=== PATIENT | female | born 1935 | race Caucasian/White ===

== ENCOUNTER 2016-09-02 10:09 | Inpatient (IN) | payer OTHER ==
[~2016-09-02] VITALS: Ht 160 cm; Wt 60.3 kg
[~2016-09-02 10:09] MED LIST: CHOL100010 PO; DONE10TA12 PO; KFL500 PO; MTH25 PO; NMN10 PO; PRLSR20 PO
[2016-09-02] MEDS ORDERED: SODIUM CHLORIDE 0.9% 500ML 500 ML IV STA (10:59)
[2016-09-02] MEDS ORDERED: SULFAMETHOXAZOLE/TRIMETHOPRIM DS 800/160MG TAB PO STA (10:59)
[2016-09-02] MEDS ORDERED: CEFTRIAXONE SOD INJ 1 GM ADDVIAL IV STA (10:59)
[2016-09-02] MEDS ORDERED: OMEP40CA PO (11:10)
[2016-09-02] MEDS ORDERED: DONE5TAB9 PO (11:10)
--- NOTE | 2016-09-02 11:24 | DIAGNOSTIC IMAGING REPORT ---
CHEST ONE VIEW PORTABLE CLINICAL HISTORY: Generalized weakness COMPARISON STUDY: 07/09/2016 FINDINGS: The heart is the upper limits of normal in size. There is mild elevation of the interstitium. This may indicate mild pulmonary vascular congestion. There is no lobar consolidation. There is no significant pleural fluid.[ IMPRESSION: Mild elevation of the interstitium, likely representing mild pulmonary vascular congestion although an interstitial inflammatory process could appear similar. Clinical and radiographic follow-up is recommended. Electronically signed by: Greg Veliz M.D. 09/02/2016 11:22 AM
[2016-09-02 11:40] LABS: BASO % 0.5 %; BASO ABS # 0.03 K/uL (0-0.2); COMPLETE YES; EOS % 0.9 %; HEMATOCRIT 38.9 % (37-47); IG% 0.2 %; LYMPH % 14.7 %; LYMPH ABS # 0.81 K/uL (1.2-3.4); MEAN CORPUSCULAR HEMOGLOBIN 30.1 pg (25-34); MEAN CORPUSCULAR HGB CONC 33.4 g/dl (32-36); MEAN PLATELET VOLUME 9.7 fL (7.4-10.4); MONO % 6.9 %; NEUT % 76.8 %; PLATELET COUNT 188 K/uL (130-400); RED BLOOD COUNT 4.32 M/uL (4.2-5.4)
[2016-09-02 11:55] LABS: ALT/SGPT 16 U/L (12-78); BLOOD UREA NITROGEN 19 mg/dl (7-18); BUN/CREATININE RATIO 21.3 (10-20); CALCIUM 9.3 mg/dl (8.5-10.1); CARBON DIOXIDE 29 mmol/L (21-32); CHLORIDE 99 mmol/L (98-107); CREATININE 0.91 mg/dl (0.60-1.20); GLUCOSE 206 mg/dl (70-99); POTASSIUM 4.1 mmol/L (3.5-5.1); SODIUM 137 mmol/L (136-145)
[2016-09-02 12:05] LABS: ALKALINE PHOSPHATASE 69 U/L (45-117); AST/SGOT 17 U/L (15-37); THYROID STIMULATING HORMONE 0.449 uIu/ml (0.300-4.500)
[2016-09-02] MEDS ORDERED: ACETAMINOPHEN 325 MG TAB PO PRN (12:15)
[2016-09-02] MEDS ORDERED: ONDANSETRON INJ 2 MG/ML 2 ML VIAL IV PRN (12:15)
[2016-09-02] MEDS ORDERED: MAGNESIUM HYDROXIDE SUSP 30 ML UDC PO PRN (12:15)
[2016-09-02] MEDS ORDERED: ALUMINUM/MAGNESIUM/SIMETH (MAALOX MAX) 30 ML UDC PO PRN (12:15)
[2016-09-02 12:22] LABS: URINE APPEARANCE CLOUDY (CLEAR); URINE BILIRUBIN NEG (NEG); URINE COLOR YELLOW; URINE NITRITE NEG (NEG); URINE SPECIFIC GRAVITY 1.025 (1.000-1.030); UROBILINOGEN NEG (NEG); ZZURINE CULT IF INDIC CATH YES
[2016-09-02 12:23] LABS: MANUAL MICROSCOPIC REQUIRED? NO; REVIEW REQ? NO
--- NOTE | 2016-09-02 12:25 | EMERGENCY ROOM VISIT NOTE ---
History Report prepared by Jordy: Michelle Hood Under the Supervision of: Dr. Luc Alexander M.D. First contact with patient: 10:53 Chief Complaint: CONFUSION Stated Complaint: POSS. 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 The patient came to the ED via ambulance from the [facility]. The patient is also experiencing lethargy and hypertension. The patient's daughter states that the patient has Alzheimer's disease and experiences these symptoms whenever she has a UTI. Her daughter adds that the patient typically experiences urinary incontinence. The patient's daughter states that typically the patient receives IV Rocephin for UTIs and gets a prescription for Bactrim. Source of History: family (daughter) Onset: EMPLOYEE DEVELOPMENT DIRECTOR Position: head Quality: other (altered mental status) Timing: worsening Note: lethargy, hypertension Review of Systems See HPI for pertinent positives & negatives. A total of 10 systems reviewed and were otherwise negative. Past Medical & Surgical Medical Problems: (1) Acute encephalopathy (2) Constipation (3) Dementia, Unspecified, Without Behavioral Disturbance (4) Diabetes (5) Diverticulosis Colon (W/O Ment Of Hemorrhage) (6) Esophageal Reflux (7) Hyperlipidemia Nec/Nos (8) Hypertension Nos (9) Irritable Bowel Syndrome (10) Metabolic encephalopathy (11) Osteoarthros Nos-Unspec (12) Osteoporosis Nos Surgical Problems: (1) History of cataract extraction (2) History of hysterectomy (3) History of shoulder surgery (4) Incisional Hernia Family History Cancer Social History Smoking Status: Never Smoker Alcohol Use: none Marital Status: Housing Status: lives with family Occupation Status: retired Current/Historical Medications Scheduled Aspirin (Aspirin Chewable), 81 MG PO QAM Carbidopa/Levodopa (Sinemet 25MG/100MG), 1 TAB PO TIDM Cholecalciferol (Vitamin D), 1,000 INTER.UNIT PO QAM Donepezil HCl (Aricept), 1 TAB PO HS Folic Acid (Folic Acid), 1 MG PO DAILY Lisinopril (Zestril), 10 MG PO DAILY Memantine (Namenda), 10 MG PO BID Metformin HCl (Metformin HCl), 500 MG PO BID Methotrexate (Methotrexate), 15 MG PO WK Multivitamin (Multivitamin), 1 TAB PO QAM Omeprazole (Prilosec), 40 MG PO DAILY Polyethylene Glycol 3350 (Miralax), 17 GM PO DAILY Probiotic Product (Probiotic), 1 CAP PO DAILY Ranitidine HCl (Ranitidine HCl), 150 MG PO HS Simethicone (Cvs Gas Relief), 80 MG PO TIDM Simvastatin (Zocor), 20 MG PO QPM Allergies Coded Allergies: Penicillins (Verified Allergy, Intermediate, ARM GETS RED AND LUMP FORMS AT INJECTION SITE, 09/02/16) PT STATES THAT SHE HAD RECEIVED SHOTS IN THE PAST AND HER ARM GETS RED AND LUMP FORMS Latex (Verified Allergy, Mild, RASH, 09/02/16) Adhesives (Verified Allergy, Unknown, ., 09/02/16) Morphine (Verified Allergy, Unknown, 09/02/16) Levofloxacin (Verified Adverse Reaction, Intermediate, GI SYMPTOMS, ) LOST 30 LBS. DUE TO GI SYMPTOMS Physical Exam Vital Signs Date Time Temp Pulse Resp B/P Pulse Ox O2 Delivery O2 Flow Rate FiO2 09/02/16 12:07 82 18 137/80 97 Room Air 09/02/16 10:22 36.9 91 18 134/69 97 Room Air 09/02/16 10:18 101 Physical Exam GENERAL: Patient is a healthy-appearing well-nourished older female HEAD: Normocephalic atraumatic EYES: Ocular movements intact pupils equal and react to light OROPHARYNX mucous membranes are moist no exudates present no erythema or edema present NECK: Supple no nuchal rigidity CHEST: Good equal expansion LUNGS: Clear and equal to auscultation CARDIAC: Normal S1 and S2 ABDOMEN: Soft nontender no guarding BACK: No CVA tenderness EXTREMITIES: No pain upon palpation normal muscle strength in all groups no clubbing cyanosis or edema NEURO: Patient does not follow commands. Cranial Nerves 2-12 grossly intact Medical Decision & Procedures ER Provider Diagnostic Interpretation: X-ray results as stated below per interpretation by me and the radiologist: CHEST ONE VIEW PORTABLE CLINICAL HISTORY: Generalized weakness COMPARISON STUDY: 07/09/2016 FINDINGS: The heart is the upper limits of normal in size. There is mild elevation of the interstitium. This may indicate mild pulmonary vascular congestion. There is no lobar consolidation. There is no significant pleural fluid.[ IMPRESSION: Mild elevation of the interstitium, likely representing mild pulmonary vascular congestion although an interstitial inflammatory process could appear similar. Clinical and radiographic follow-up is recommended. Electronically signed by: Greg Veliz M.D. 09/02/2016 11:22 AM Laboratory Results Test 09/02/16 11:15 Estimated Average Glucose 146 mg/dl Hemoglobin A1c 6.7 % (4.5-5.6) Total Bilirubin 0.5 mg/dl (0.2-1) Direct Bilirubin 0.2 mg/dl (0-0.2) Aspartate Amino Transf (AST/SGOT) 17 U/L (15-37) Alanine Aminotransferase (ALT/SGPT) 16 U/L (12-78) Alkaline Phosphatase 69 U/L (45-117) Total Creatine Kinase 48 U/L (26-192) Creatine Kinase MB < 0.5 ng/ml (0.5-3.6) Creatine Kinase MB Ratio (0-3.0) Troponin I < 0.015 ng/ml (0-0.045) Total Protein 7.0 gm/dl (6.4-8.2) Albumin 3.1 gm/dl (3.4-5.0) Thyroid Stimulating Hormone (TSH) 0.449 uIu/ml (0.300-4.500) Labs reviewed by ED physician. Medications Administered Medications (Trade) Dose Ordered Sig/Wendy Route Start Time Stop Time Status Last Admin Dose Admin Sodium Chloride (Nss 500ml) 500 ml @ 999 mls/hr Q31M STAT IV 09/02/16 10:59 09/02/16 11:29 DC 09/02/16 11:38 999 MLS/HR Ceftriaxone Sodium (Rocephin Inj) 1 gm NOW STAT IV 09/02/16 10:59 09/02/16 11:01 DC 09/02/16 10:59 1 GM Trimethoprim/ Sulfamethoxazole (Septra Ds 800/ 160MG Tab) 1 tab NOW STAT PO 09/02/16 10:59 09/02/16 11:01 DC 09/02/16 11:38 1 TAB ECG Indication: altered mental status Rate (beats per minute): 85 Rhythm: normal sinus Findings: PVC, no acute ischemic change ED Course 1056: Past medical records reviewed. The patient was evaluated in room A3. A complete history and physical examination was performed. 1059: Ordered Trimethoprim/Sulfamethoxazole 1 tab PO, Rocephin 1 gm IV, Sodium Chloride 500 ml @ 999 mls/hr IV 1201: I discussed the patient's case with Dr. Pernell NIELSON, he has agreed to evaluate the patient for further management and care. 1203: Upon reexamination the patient is resting comfortably. I discussed results and treatment plan with the patient and her family. They verbalize agreement and understanding. I spoke with Dr. Gimenez from the [facility]. The patient will be evaluated for further management. Medical Decision Differential diagnosis: Etiologies such as metabolic, infection, hypoglycemia, electrolyte abnormalities , cardiac sources, intracerebral event, toxicologic, neurologic, as well as others were entertained. This is an 81-year-old female who presents emergency department complaining of mental status. Patient has been having urinary symptoms. An IV was established , the patient given normal saline bolus. She does appear to have urinary tract infection and therefore started on Rocephin as well as Bactrim. I did discuss the case with the hospitalist service who agreed to admit the patient. Patient was in agreement with the treatment plan. Consults Time Called: 1159 Consulting Physician: Dr. Pernell NIELSON Returned Call: 1201 I discussed the patient's case with Dr. Pernell NIELSON, he has agreed to evaluate the patient for further management and care. Impression Primary Impression: Altered mental status Additional Impression: UTI (lower urinary tract infection) Scribe Attestation The scribe's documentation has been prepared under my direction and personally reviewed by me in its entirety. I confirm that the note above accurately reflects all work, treatment, procedures, and medical decision making performed by me. Departure Information Dispostion Being Evaluated By Hospitalist Referrals Jagdish Lam (PCP) Patient Instructions A Signature Page, My [facility]
[2016-09-02 12:30] VITALS: O2SAT 97; Ht 160 cm; Wt 60.3 kg
[2016-09-02 14:09] LABS: ESTIMATED AVERAGE GLUCOSE 146 mg/dl; HA1C FLAG Normal (Normal)
[2016-09-02 15:30] VITALS: BP 132/67; PULSE 88; TEMP 36.8; O2SAT 92
--- NOTE | 2016-09-02 16:25 | HISTORY & PHYSICAL EXAMINATION ---
DATE OF ADMISSION: 09/02/2016 CHIEF COMPLAINT: Confusion. HISTORY OF PRESENT ILLNESS: This is an 81-year-old female who resides at [facility], was brought to the Emergency Room because of change of mental status that started this morning. The patient has experienced lethargy and the patient 's daughter that presents at bedside mentioned that the patient has Alzheimer dementia and her symptoms of confusion get worse when she gets a UTI. The patient was admitted for multiple UTIs before. Daughter also mentioned that the patient typically experiences urinary incontinence associated with UTI. The patient's daughter mentions that she usually receives IV Rocephin and Bactrim and her symptoms improved within few days. REVIEW OF SYSTEMS: Limited due to the patient's confusion and history was mainly obtained from the Emergency Room records and family. PAST MEDICAL HISTORY: Significant for UTI, constipation, dementia, type 2 diabetes, diverticulosis, GERD, hyperlipidemia, hypertension, irritable bowel syndrome, metabolic encephalopathy, osteoporosis, osteoarthritis, cataract extraction, hysterectomy, shoulder surgery, and incisional hernia. FAMILY HISTORY: Significant for cancer. SOCIAL HISTORY: Does not smoke, does not drink, lives at [facility]. CURRENT MEDICATIONS: Aspirin 81 mg p.o. daily, carbidopa/levodopa 25/100 mg 1 tablet p.o. t.i.d., cholecalciferol 1000 international units p.o. daily, donepezil 1 tablet p.o. at bedtime, folic acid 1 mg p.o. daily, lisinopril 10 mg p.o. daily, memantine 10 mg p.o. b.i.d., metformin 500 mg p.o. b.i.d., methotrexate 50 mg p.o. weekly on , multivitamin 1 tablet p.o. daily, omeprazole 40 mg p.o. daily, polyethylene glycol 17 grams p.o. daily, probiotic 1 capsule p.o. daily, ranitidine 150 mg p.o. at bedtime, simethicone 80 mg p.o. t.i.d., and simvastatin 20 mg p.o. daily. ALLERGIES: PENICILLIN, LATEX, ADHESIVES, MORPHINE AND LEVOFLOXACIN. PHYSICAL EXAMINATION: VITAL SIGNS: Temperature 36.9, pulse 82, respirations 18, blood pressure 137/80, and pulse ox 97% on room air. GENERAL: Not in acute distress, pleasantly confused. HEENT: Normocephalic and atraumatic. PERRLA, EOMI. Mouth moist. No lesions. NECK: No JVD. Trachea midline. Thyroid is not enlarged. LUNGS: Clear to auscultation bilateral. No wheezes and no rhonchi. HEART: S1 and S2, RRR. ABDOMEN: Soft, nontender, and nondistended. Bowel sounds present bilateral. No organomegaly. BACK: No CVA tenderness. EXTREMITIES: No clubbing, cyanosis or edema. NEUROLOGICAL: The patient is pleasantly confused and disoriented x2. Does not follow commands. Cranial nerves II-XII are intact; however, unable to follow commands to finish complete neurological examination. DIAGNOSTIC INTERPRETATION: Chest x-ray, mild elevation of the interstitium, likely representing mild pulmonary vascular congestion, although an interstitial inflammatory process could appear similar. LABORATORY DATA: White count of 5.5, hemoglobin of 13.0, and platelets 180. BMP normal except for glucose of 206, gap of 9.0, and calcium 9.3. LFTs normal. CK-MB and troponin normal. Albumin of 3.1. TSH of 0.49. EKG, 85 beats per minute normal sinus, PVC, no acute ischemic changes. ASSESSMENT AND PLAN: This is an 81-year-old female who comes with altered mental status secondary to urinary tract infection. 1. Acute toxic metabolic encephalopathy secondary to urinary tract infection. Admit the patient to general medical floor. Start IV ceftriaxone. Check urinalysis with cultures until sensitivities are back. Continue with normal saline at 80 mL per hour. 2. History of Alzheimer's dementia, currently symptoms of confusion are worse due to urinary tract infection. We will continue Namenda and Aricept. 3. Type 2 diabetes mellitus. The patient was taking metformin, which I am going to put on hold and start the patient on sliding scale. We will check hemoglobin A1c while the patient is here. 4. History of constipation, gastroesophageal reflux disease, hyperlipidemia, and hypertension. Continue aspirin, folic acid, lisinopril, omeprazole, ranitidine, Probiotic, Simethicone, and simvastatin. 5. History of parkinsonism, but no Parkinson disease. Continue carbidopa/levodopa 1 tablet p.o. t.i.d. 6. DVT and GI prophylaxis. The patient is Do Not Resuscitate. Time spent on doing this admission, 40 minutes. [facility]
[2016-09-02] MEDS: INSULIN ASPART 100 UNITS/ML 3 ML PEN SC SCH ×2 (17:15→21:00)
[2016-09-02] MEDS: SODIUM CHLORIDE 0.9% 1000ML 1,000 ML IV SCH ×2 (17:55→23:22)
[2016-09-02] MEDS: SIMETHICONE 80 MG CHEW PO SCH (17:58)
[2016-09-02] MEDS: CARBIDOPA/LEVODOPA 25/100MG TAB PO SCH (17:58)
[2016-09-02] MEDS: MEMANTINE 10 MG TAB PO SCH (21:13)
[2016-09-02] MEDS: SIMVASTATIN 20 MG TAB PO SCH (21:13)
[2016-09-02] MEDS: DONEPEZIL HCL 5 MG TAB PO SCH (21:13)
[2016-09-02] MEDS: RANITIDINE HCL 150 MG TAB PO SCH (21:13)
[2016-09-02] MEDS: HEPARIN SOD 5000 UNIT/0.5 ML CARP SQ SCH (21:16)
[2016-09-02 22:55] VITALS: BP 120/68; PULSE 87; TEMP 36.3; O2SAT 91
[2016-09-03] VITALS (9 sets, daily range): BP systolic 118–161; BP diastolic 49–98; PULSE 71–99; TEMP 36.3–36.7; O2SAT 96–98
[2016-09-03 06:39] LABS: URINE APPEARANCE CLEAR (CLEAR); URINE BILIRUBIN NEG (NEG); URINE COLOR YELLOW; URINE EPITHELIAL CELL AUTO 20-30 /lpf (0-5); URINE NITRITE NEG (NEG); URINE SPECIFIC GRAVITY 1.013 (1.000-1.030); UROBILINOGEN NEG (NEG)
[2016-09-03 06:42] LABS: MANUAL MICROSCOPIC REQUIRED? NO; REVIEW REQ? NO
[2016-09-03 06:54] LABS: BASO % 0.6 %; BASO ABS # 0.03 K/uL (0-0.2); COMPLETE YES; EOS % 4.5 %; HEMATOCRIT 35.4 % (37-47); LYMPH % 22.7 %; LYMPH ABS # 1.05 K/uL (1.2-3.4); MEAN CELL VOLUME 89.8 fL (80-100); MEAN CORPUSCULAR HEMOGLOBIN 29.9 pg (25-34); MEAN CORPUSCULAR HGB CONC 33.3 g/dl (32-36); MEAN PLATELET VOLUME 9.8 fL (7.4-10.4); MONO % 3.9 %; NEUT % 68.3 %; PLATELET COUNT 182 K/uL (130-400); RED BLOOD COUNT 3.94 M/uL (4.2-5.4); WHITE BLOOD COUNT 4.62 K/uL (4.8-10.8)
[2016-09-03 07:24] LABS: BUN/CREATININE RATIO 14.4 (10-20); CALCIUM 8.7 mg/dl (8.5-10.1); CREATININE 0.9 mg/dl (0.60-1.20); POTASSIUM 3.7 mmol/L (3.5-5.1)
[2016-09-03] MEDS: INSULIN ASPART 100 UNITS/ML 3 ML PEN SC SCH ×4 (08:00→20:51)
[2016-09-03] MEDS: CHOLECALCIFEROL 1000 INTER.UNIT TAB PO SCH (09:04)
[2016-09-03] MEDS: ASPIRIN 81 MG ECTAB PO SCH (09:04)
[2016-09-03] MEDS: MEMANTINE 10 MG TAB PO SCH ×2 (09:04→20:51)
[2016-09-03] MEDS: CARBIDOPA/LEVODOPA 25/100MG TAB PO SCH ×3 (09:05→17:39)
[2016-09-03] MEDS: LISINOPRIL 10 MG TAB PO SCH (09:05)
[2016-09-03] MEDS: POLYETHYLENE (MIRALAX) 17 GM PACK PO SCH (09:05)
[2016-09-03] MEDS: SIMETHICONE 80 MG CHEW PO SCH ×3 (09:05→17:39)
[2016-09-03] MEDS: MULTIVITAMIN TAB PO SCH (09:05)
[2016-09-03] MEDS: PANTOprazole SOD 40 MG TAB PO SCH (09:05)
[2016-09-03] MEDS: LACTOBACILLUS ACIDOPHILUS (FLORANEX) TAB PO SCH (09:05)
[2016-09-03] MEDS: HEPARIN SOD 5000 UNIT/0.5 ML CARP SQ SCH ×2 (09:15→20:57)
[2016-09-03] MEDS: CEFTRIAXONE SOD INJ 1 GM in DEXTROSE 5% ADD-VANTAGE 50ML 50 ML IV SCH (09:26)
--- NOTE | 2016-09-03 12:35 | Progress Note ---
Subjective Subjective Date of Service: Sep 03, 2016. Pt evaluation today including: conversation w/ patient, physical exam, chart review, review of studies, review of inpatient medication list Notes: confusion is improving, however ROS is limited due to mental status Problem List Medical Problems: (1) Altered mental status Status: Acute (2) Dementia, Unspecified, Without Behavioral Disturbance Status: Chronic (3) Diabetes Status: Chronic (4) Esophageal Reflux Status: Chronic (5) Hyperlipidemia Nec/Nos Status: Chronic (6) Hypertension Nos Status: Chronic (7) Irritable Bowel Syndrome Status: Chronic (8) Osteoarthros Nos-Unspec Status: Chronic (9) Osteoporosis Nos Status: Chronic (10) UTI (lower urinary tract infection) Status: Acute (11) UTI (urinary tract infection) Status: Acute Review of Systems Respiratory: No cough Abdomen: No pain Musculoskeletal: No joint pain Female : No dysuria Physical Exam Vital Signs Vital Signs Past 24 Hours: Date Time Temp Pulse Resp B/P Pulse Ox O2 Delivery O2 Flow Rate FiO2 09/03/16 08:21 85 19 152/88 98 Room Air 09/03/16 08:20 82 19 160/49 98 Room Air 09/03/16 07:45 Room Air 09/03/16 06:56 36.7 74 18 125/70 97 Room Air 09/03/16 04:42 82 135/71 93 153/98 09/02/16 23:10 Room Air 09/02/16 22:55 36.3 87 16 120/68 91 Room Air 09/02/16 15:30 36.8 88 16 132/67 92 Room Air 09/02/16 15:30 Room Air 09/02/16 14:05 36.5 80 16 120/61 98 Room Air Physical Exam: General Appearance: WD/WN, no apparent distress Eyes: bilateral eyes normal inspection ENT: hearing grossly normal, pharynx normal Neck: supple, no JVD Respiratory/Chest: lungs clear, no respiratory distress Cardiovascular: regular rate, rhythm, no gallop Abdomen: non tender, soft Extremities: non-tender, no pedal edema Neurologic/Psychiatric: alert Skin: warm/dry Medications Medications: Current Inpatient Medications Medications (Trade) Dose Ordered Sig/Wendy Route Start Time Stop Time Status Last Admin Dose Admin Aspirin (Ecotrin Tab) 81 mg QAM PO 09/03/16 09:00 10/03/16 08:59 09/03/16 09:04 81 MG Carbidopa/Levodopa (Sinemet 25/ 100MG Tab) 1 tab TIDM PO 09/02/16 17:45 10/02/16 17:59 09/03/16 09:05 1 TAB Cholecalciferol (Vitamin D Tab) 1,000 inter.unit QAM PO 09/03/16 09:00 10/03/16 08:59 09/03/16 09:04 1,000 INTER.UNIT Donepezil HCl (Aricept Tab) 5 mg HS PO 09/02/16 21:00 10/02/16 20:59 09/02/16 21:13 5 MG Folic Acid (Folvite Tab) 1 mg DAILY PO 09/03/16 09:00 10/03/16 08:59 09/03/16 09:04 1 MG Lisinopril (Zestril Tab) 10 mg DAILY PO 09/03/16 09:00 10/03/16 08:59 09/03/16 09:05 10 MG Memantine (Namenda Tab) 10 mg BID PO 09/02/16 21:00 10/02/16 20:59 09/03/16 09:04 10 MG Methotrexate (Methotrexate Tab) 15 mg Th@0900 PO 09/07/16 09:00 10/07/16 08:59 Multivitamins (Multivitamin Tab) 1 tab QAM PO 09/03/16 09:00 10/03/16 08:59 09/03/16 09:05 1 TAB Ranitidine HCl (zANTac TAB) 150 mg HS PO 09/02/16 21:00 10/02/16 20:59 09/02/16 21:13 150 MG Simethicone (Mylicon Chew Tab) 80 mg TIDM PO 09/02/16 17:45 10/02/16 17:59 09/03/16 09:05 80 MG Simvastatin (Zocor Tab) 20 mg QPM PO 09/02/16 21:00 10/02/16 20:59 09/02/16 21:13 20 MG Pantoprazole Sodium (Protonix Tab) 40 mg DAILY PO 09/03/16 09:00 10/03/16 08:59 09/03/16 09:05 40 MG Polyethylene (Miralax Powder Packet) 17 gm DAILY PO 09/03/16 09:00 10/03/16 08:59 09/03/16 09:05 17 GM Lactobacillus Acidophilus 1 tab 1 tab DAILY PO 09/03/16 09:00 10/03/16 08:59 09/03/16 09:05 1 TAB Ceftriaxone Sodium/Dextrose (Rocephin Inj/ Dextrose Add-[place] 50ML) 50 ml @ 100 mls/hr Q24H IV 09/03/16 10:00 09/11/16 10:29 09/03/16 09:26 100 MLS/HR Acetaminophen (Tylenol Tab) 650 mg Q4H PRN PO 09/02/16 12:15 10/02/16 12:14 Al Hydrox/Mg Hydrox/Simethicone (Maalox Max Susp) 15 ml Q4H PRN PO 09/02/16 12:15 10/02/16 12:14 Magnesium Hydroxide (Milk Of Magnesia Susp) 30 ml Q6H PRN PO 09/02/16 12:15 10/02/16 12:14 Ondansetron HCl (Zofran Inj) 4 mg Q6H PRN IV 09/02/16 12:15 10/02/16 12:14 Heparin Sodium (Porcine) (Heparin Sq 5000 Unit/0.5ml) 5,000 unit Q12 SQ 09/02/16 21:00 10/02/16 20:59 09/03/16 09:15 5,000 UNIT Insulin Aspart SLIDING SCALE G... ACHS SC 09/02/16 17:15 10/02/16 17:14 Sodium Chloride (Nss 1000ml) 1,000 ml @ 80 mls/hr [id number] IV 09/02/16 12:30 10/02/16 12:29 09/02/16 23:22 80 MLS/HR Laboratory Data Labs: Last 24 Hours Test 09/02/16 16:38 09/02/16 20:48 09/03/16 06:00 09/03/16 06:01 Bedside Glucose 156 mg/dl 137 mg/dl Urine Color YELLOW Urine Appearance CLEAR Urine pH 7.0 Urine Specific [place] 1.013 Urine Protein NEG Urine Glucose (UA) NEG Urine Ketones TRACE Urine Occult Blood NEG Urine Nitrite NEG Urine Bilirubin NEG Urine Urobilinogen NEG Urine Leukocyte Esterase TRACE Urine WBC (Auto) 1-5 /hpf Urine RBC (Auto) 0-4 /hpf Urine Hyaline Casts (Auto) 1-5 /lpf Urine Epithelial Cells (Auto) 20-30 /lpf Urine Bacteria (Auto) NEG White Blood Count 4.62 K/uL Red Blood Count 3.94 M/uL Hemoglobin 11.8 g/dL Hematocrit 35.4 % Mean Corpuscular Volume 89.8 fL Mean Corpuscular Hemoglobin 29.9 pg Mean Corpuscular Hemoglobin Concent 33.3 g/dl Platelet Count 182 K/uL Mean Platelet Volume 9.8 fL Neutrophils (%) (Auto) 68.3 % Lymphocytes (%) (Auto) 22.7 % Monocytes (%) (Auto) 3.9 % Eosinophils (%) (Auto) 4.5 % Basophils (%) (Auto) 0.6 % Neutrophils # (Auto) 3.15 K/uL Lymphocytes # (Auto) 1.05 K/uL Monocytes # (Auto) 0.18 K/uL Eosinophils # (Auto) 0.21 K/uL Basophils # (Auto) 0.03 K/uL RDW Standard Deviation 47.2 fL RDW Coefficient of Variation 14.3 % Immature Granulocyte % (Auto) 0.0 % Immature Granulocyte # (Auto) 0.00 K/uL Sodium Level 138 mmol/L Potassium Level 3.7 mmol/L Chloride Level 104 mmol/L Carbon Dioxide Level 27 mmol/L Anion Gap 7.0 mmol/L Blood Urea Nitrogen 13 mg/dl Creatinine 0.90 mg/dl Est Creatinine Clear Calc Drug Dose 39.9 ml/min Estimated GFR () 69.0 Estimated GFR (Non- 59.5 BUN/Creatinine Ratio 14.4 Random Glucose 132 mg/dl Calcium Level 8.7 mg/dl Test 09/03/16 06:55 09/03/16 11:11 Bedside Glucose 128 mg/dl 202 mg/dl Assessment and Plan This is an 81-year-old female who comes with altered mental status secondary to urinary tract infection. 1. Acute toxic metabolic encephalopathy secondary to urinary tract infection. cont general medical floor. cont IV ceftriaxone. until sensitivities on urine cultures are back. Continue with normal saline at 80 mL per hour. 2. History of Alzheimer's dementia, currently symptoms of confusion are worse due to urinary tract infection. continue Namenda and Aricept. 3. Type 2 diabetes mellitus. metformin, on hold and start the patient on sliding scale. hemoglobin A1c 6.7 4. History of constipation, gastroesophageal reflux disease, hyperlipidemia, and hypertension. Continue aspirin, folic acid, lisinopril, omeprazole, ranitidine, Probiotic, Simethicone, and simvastatin. 5. History of parkinsonism, but no Parkinson disease. Continue carbidopa/ levodopa 1 tablet p.o. t.i.d. 6. DVT and GI prophylaxis. The patient is Do Not Resuscitate.
[2016-09-03] MEDS: SODIUM CHLORIDE 0.9% 1000ML 1,000 ML IV SCH ×2 (12:49→23:22)
[2016-09-03] MEDS: SIMVASTATIN 20 MG TAB PO SCH (20:51)
[2016-09-03] MEDS: RANITIDINE HCL 150 MG TAB PO SCH (20:51)
[2016-09-03] MEDS: DONEPEZIL HCL 5 MG TAB PO SCH (20:51)
[2016-09-04] MEDS: INSULIN ASPART 100 UNITS/ML 3 ML PEN SC SCH ×2 (08:00→12:00)
[2016-09-04 08:08] VITALS: BP 146/72; PULSE 70; TEMP 36.4; O2SAT 97
[2016-09-04 08:08] LABS: BASO % 1.3 %; BASO ABS # 0.04 K/uL (0-0.2); COMPLETE YES; EOS % 11.9 %; HEMATOCRIT 34.2 % (37-47); IG% 0.3 %; LYMPH % 30.9 %; LYMPH ABS # 0.96 K/uL (1.2-3.4); MEAN CELL VOLUME 88.6 fL (80-100); MEAN CORPUSCULAR HEMOGLOBIN 29.8 pg (25-34); MEAN CORPUSCULAR HGB CONC 33.6 g/dl (32-36); MEAN PLATELET VOLUME 9.6 fL (7.4-10.4); MONO % 3.9 %; NEUT % 51.7 %; PLATELET COUNT 174 K/uL (130-400); RED BLOOD COUNT 3.86 M/uL (4.2-5.4); WHITE BLOOD COUNT 3.11 K/uL (4.8-10.8)
[2016-09-04 08:11] VITALS: BP_SYST 158; BP_SYST 165; BP_DIAS 85; BP_DIAS 92; PULSE 76; PULSE 79
[2016-09-04 08:38] LABS: BUN/CREATININE RATIO 16.3 (10-20); CALCIUM 8.9 mg/dl (8.5-10.1); CREATININE 0.72 mg/dl (0.60-1.20); POTASSIUM 3.9 mmol/L (3.5-5.1)
[2016-09-04] MEDS: CARBIDOPA/LEVODOPA 25/100MG TAB PO SCH ×2 (09:17→13:09)
[2016-09-04] MEDS: ASPIRIN 81 MG ECTAB PO SCH (09:18)
[2016-09-04] MEDS: MEMANTINE 10 MG TAB PO SCH (09:19)
[2016-09-04] MEDS: LACTOBACILLUS ACIDOPHILUS (FLORANEX) TAB PO SCH (09:19)
[2016-09-04] MEDS: PANTOprazole SOD 40 MG TAB PO SCH (09:20)
[2016-09-04] MEDS: MULTIVITAMIN TAB PO SCH (09:21)
[2016-09-04] MEDS: CHOLECALCIFEROL 1000 INTER.UNIT TAB PO SCH (09:21)
[2016-09-04] MEDS: LISINOPRIL 10 MG TAB PO SCH (09:22)
[2016-09-04] MEDS: SIMETHICONE 80 MG CHEW PO SCH ×2 (09:23→13:09)
[2016-09-04] MEDS: POLYETHYLENE (MIRALAX) 17 GM PACK PO SCH (09:26)
[2016-09-04] MEDS: HEPARIN SOD 5000 UNIT/0.5 ML CARP SQ SCH (09:29)
[2016-09-04] MEDS: CEFTRIAXONE SOD INJ 1 GM in DEXTROSE 5% ADD-VANTAGE 50ML 50 ML IV SCH (09:34)
[2016-09-04] MEDS ORDERED: NITROFURANTOIN MONOHYDRATE 100 MG CAP PO SCH (13:00)
[2016-09-04] MEDS ORDERED: NITR100C41 PO (13:02)
--- NOTE | 2016-09-04 13:04 | Discharge Instructions ---
Discharge Instructions Admission Reason for Admission: Acute Encephalopathy Discharge Discharge Diagnosis / Problem: acute encephalopathy sec to UTI Discharge Goals Goal(s): Increase independence, Improve disease control, Diagnostic testing, Therapeutic intervention Activity Recommendations Activity Limitations: resume your previous activity . Instructions / Follow-Up Instructions / Follow-Up finish oral antibiotics Current Hospital Diet Patient's current hospital diet: Diabetes Type 2 Diet Discharge Diet Recommended Diet: Regular Diet Pending Studies Studies pending at discharge: no Laboratory Results Hemoglobin A1c Test 09/02/16 11:15 Range/Units Estimated Average Glucose 146 mg/dl Hemoglobin A1c 6.7 H 4.5-5.6 % Medical Emergencies . Who to Call and When: Medical Emergencies: If at any time you feel your situation is an emergency, please call 911 immediately. . Non-Emergent Contact Non-Emergency issues call your: Primary Care Provider Call Non-Emergent contact if: you have a fever, your pain is not controlled . Past History Medical & Surgical History: (1) Acute encephalopathy (2) UTI (lower urinary tract infection) . "Provider Documentation" section prepared by Tim Gimenez. VTE Core Measure Inpt VTE Proph given/why not?: SCD's
--- NOTE | 2016-09-04 13:07 | Discharge Summary ---
Discharge Summary Admission Date: Sep 02, 2016 at 12:22 Discharge Date: Sep 04, 2016 Discharge Disposition: Personal care Principal Diagnosis: acute encephaloapthy sec to UTI Problems/Secondary Diagnoses: (1) Dementia, Unspecified, Without Behavioral Disturbance Status: Chronic (2) Diabetes Status: Chronic (3) Esophageal Reflux Status: Chronic (4) Hyperlipidemia Nec/Nos Status: Chronic (5) Hypertension Nos Status: Chronic (6) Irritable Bowel Syndrome Status: Chronic (7) Osteoarthros Nos-Unspec Status: Chronic (8) Osteoporosis Nos Status: Chronic Immunizations: Have You Had Influenza Vaccine: No History of Tetanus Vaccine?: Unknown History of Pneumococcal: Yes Pneumococcal Date: May 29, 2008 History of Hepatitis B Vaccine: Unknown Medication Reconciliation New Medications: Nitrofurantoin Macrocrystal (Nitrofurantoin) 100 Mg Cap 100 MG PO BID, #13 TABS Continued Medications: Aspirin (Aspirin Chewable) 81 Mg Chew 81 MG PO QAM Carbidopa/Levodopa (Sinemet 25MG/100MG) Tab 1 TAB PO TIDM, TAB Cholecalciferol (Vitamin D) 1,000 Inter.unit Tab 1000 INTER.UNIT PO QAM Donepezil HCl (Aricept) 5 Mg Tab 1 TAB PO HS for 90 Days, TAB 3 Refills Folic Acid (Folic Acid) 1 Mg Tab 1 MG PO DAILY Lisinopril (Zestril) 10 Mg Tab 10 MG PO DAILY, TAB Memantine (Namenda) 10 Mg Tab 10 MG PO BID Metformin HCl (Metformin HCl) 500 Mg Tab 500 MG PO BID Methotrexate (Methotrexate) 2.5 Mg Tab 15 MG PO WK TAKE 6 TABLETS ON FRIDAYS Multivitamin (Multivitamin) Tab 1 TAB PO QAM Omeprazole (Prilosec) 40 Mg Capcr 40 MG PO DAILY, CAP Polyethylene Glycol 3350 (Miralax) 1 Pow Pow 17 GM PO DAILY, #255 GM Probiotic Product (Probiotic) 1 Cap Cap 1 CAP PO DAILY Ranitidine HCl (Ranitidine HCl) 150 Mg Tab 150 MG PO HS Simethicone ([facility] Gas Relief) 80 Mg Chw 80 MG PO TIDM Simvastatin (Zocor) 20 Mg Tab 20 MG PO QPM Referrals At Discharge Follow up Referrals: Physician Referral - Within 2 Weeks with Nba Palencia M.D. Discharge Exam Review of Systems: Constitutional: No chills ENT: No unusual epistaxis Cardiovascular: No chest pain Abdomen: No nausea Genitourinary - Female: No dysuria Neurologic: No paralysis, No weakness Psychiatric: No depression symptoms Endocrine: No excessive thirst Integumentary: No rash Physical Exam: General Appearance: WD/WN, no apparent distress Eyes: normal inspection, EOMI ENT: hearing grossly normal, pharynx normal Neck: no adenopathy, no JVD Respiratory/Chest: normal breath sounds, no respiratory distress Cardiovascular: no edema, no JVD Abdomen / GI: normal bowel sounds, no organomegaly Extremities: no calf tenderness, no pedal edema Neurologic/Psychiatric: normal mood/affect, + disoriented Skin: warm/dry Hospital Course This is an 81-year-old female who comes with altered mental status secondary to urinary tract infection. 1. Acute toxic metabolic encephalopathy secondary to urinary tract infection. cont general medical floor. received IV ceftriaxone. sensitivities on urine cultures are back with enterococcus. sensitive to microbid, start 100 mg po bid for 7 days 2. History of Alzheimer's dementia, currently symptoms of confusion are worse due to urinary tract infection. continue Namenda and Aricept. 3. Type 2 diabetes mellitus. metformin, hemoglobin A1c 6.7 4. History of constipation, gastroesophageal reflux disease, hyperlipidemia, and hypertension. Continue aspirin, folic acid, lisinopril, omeprazole, ranitidine, Probiotic, Simethicone, and simvastatin. 5. History of parkinsonism, but no Parkinson disease. Continue carbidopa/ levodopa 1 tablet p.o. t.i.d. d/c to [facility] f/u PCP 2 weeks Total Time Spent: Greater than 30 minutes This includes examination of the patient, discharge planning, medication reconciliation, and communication with other providers. Discharge Instructions Please refer to the electronic Patient Visit Report (Discharge Instructions) for additional information. Additional Copies To Nba Palencia M.D.
[2016-09-04 13:20] VITALS: BP 165/85; PULSE 76; TEMP 36.4; O2SAT 97
[2016-09-04] MEDS ORDERED: NITR1CAP32 PO (23:18)
[2016-09-07] MEDS ORDERED: METHOTREXATE 2.5 MG TAB PO SCH (09:00)
[2016-09-08] MEDS ORDERED: AMX500 PO (11:06)
[2017-02-28] MEDS ORDERED: SIMV20TA5 PO (09:15)
[2017-02-28] MEDS ORDERED: SIME80CH40 PO (11:10)
[2017-02-28] MEDS ORDERED: ZNT150 PO (11:10)
[2017-02-28] MEDS ORDERED: POLY335019 PO (11:10)
[2017-02-28] MEDS ORDERED: CARB25TA12 PO (13:54)
[2017-02-28] MEDS ORDERED: MISCCAP80 PO (13:55)
[2017-02-28] MEDS ORDERED: LISI-461 PO (13:57)
[2017-02-28] MEDS ORDERED: MULT-506 PO (17:10)
== END 2016-09-04 14:11 | disposition home or self-care (01) | DRG 689 ==
LOC: ENRESERVDT → ENRESERVTM → EDBD 10:09 → C.EDA 10:11 → C.MSN 12:22
PROVIDERS: ADMIT Hospitalist; ATTEND Hospitalist
DX: N39.0 Urinary tract infection, site not specified (principal); G93.41 Metabolic encephalopathy; I10 Essential (primary) hypertension; E11.9 Type 2 diabetes mellitus without complications; G30.9 Alzheimer's disease, unspecified; K21.9 Gastro-esophageal reflux disease without esophagitis; E78.5 Hyperlipidemia, unspecified; M81.0 Age-related osteoporosis without current pathological fracture; K58.9 Irritable bowel syndrome, unspecified; M19.90 Unspecified osteoarthritis, unspecified site; K59.00 Constipation, unspecified; B95.2 Enterococcus as the cause of diseases classified elsewhere; Z86.69 Personal history of other diseases of the nervous system and sense organs; Z79.82 Long term (current) use of aspirin; Z79.84 Long term (current) use of oral hypoglycemic drugs; Z79.899 Other long term (current) drug therapy; Z66 Do not resuscitate

== ENCOUNTER 2016-09-04 22:32 | Inpatient (IN) | payer OTHER ==
[~2016-09-04] VITALS: Ht 160 cm; Wt 64.7 kg
[~2016-09-04 22:32] MED LIST changes: -DONE10TA12 PO; +DONE5TAB9 PO; -KFL500 PO; +NITR100C41 PO; +OMEP40CA PO; -PRLSR20 PO
[2016-09-04] MEDS ORDERED: SODIUM CHLORIDE 0.9% 1000ML 1,000 ML IV STA (23:06)
[2016-09-04] MEDS ORDERED: VANCOMYCIN INJ 1,600 MG in SODIUM CHLORIDE 0.9% 500ML 500 ML IV STA (23:15)
[2016-09-04] MEDS ORDERED: NITR1CAP32 PO (23:18)
--- NOTE | 2016-09-04 23:20 | EMERGENCY ROOM VISIT NOTE ---
History Report prepared by Jordy: Medina Costa Under the Supervision of: Dr. Diane Calabrese M.D. First contact with patient: 22:57 Chief Complaint: FEVER Stated Complaint: FEVER, COUGH History of Present Illness The patient is a 81 year old female who presents to the Emergency Room with complaints of a constant fever beginning today. The patient's daughter was told by the [facility] that the patient had a low pulse ox and they called an ambulance. EMS reports that when they arrived the patient was 97% on room air and had a fever of 101. They note an associated non-productive cough and an episode of emesis. HPI limited secondary to altered mental status and non-verbal patient. Source of History: patient History Limited By: AMS Onset: today Position: other (global) Timing: constant Associated Symptoms: + vomiting Review of Systems See HPI for pertinent positives & negatives. A total of 10 systems reviewed and were otherwise negative. Past Medical & Surgical Medical Problems: (1) Acute encephalopathy (2) Constipation (3) Cough (4) Dementia, Unspecified, Without Behavioral Disturbance (5) Diabetes (6) Diverticulosis Colon (W/O Ment Of Hemorrhage) (7) Esophageal Reflux (8) Hyperlipidemia Nec/Nos (9) Hypertension Nos (10) Irritable Bowel Syndrome (11) Metabolic encephalopathy (12) Osteoarthros Nos-Unspec (13) Osteoporosis Nos Surgical Problems: (1) History of cataract extraction (2) History of hysterectomy (3) History of shoulder surgery (4) Incisional Hernia Family History Cancer Social History Smoking Status: Never Smoker Alcohol Use: none Marital Status: Housing Status: lives with family Occupation Status: retired Current/Historical Medications Scheduled Aspirin (Aspirin Chewable), 81 MG PO QAM Carbidopa/Levodopa (Sinemet 25MG/100MG), 1 TAB PO TIDM Cholecalciferol (Vitamin D), 1,000 INTER.UNIT PO QAM Donepezil HCl (Aricept), 1 TAB PO HS Folic Acid (Folic Acid), 1 MG PO DAILY Lisinopril (Zestril), 10 MG PO DAILY Memantine (Namenda), 10 MG PO BID Metformin HCl (Metformin HCl), 1,000 MG PO QAM Metformin Hcl (Glucophage), 500 MG PO QPM Methotrexate (Methotrexate), 15 MG PO WK Multivitamin (Multivitamin), 1 TAB PO QAM Nitrofurantoin Macrocrystals (Macrodantin), 100 MG PO BID Omeprazole (Prilosec), 40 MG PO DAILY Polyethylene Glycol 3350 (Miralax), 17 GM PO DAILY Probiotic Product (Probiotic), 1 CAP PO DAILY Ranitidine HCl (Ranitidine HCl), 150 MG PO HS Simethicone (Cvs Gas Relief), 80 MG PO TIDM Simvastatin (Zocor), 20 MG PO QPM Allergies Coded Allergies: Penicillins (Verified Allergy, Intermediate, ARM GETS RED AND LUMP FORMS AT INJECTION SITE, 09/04/16) PT STATES THAT SHE HAD RECEIVED SHOTS IN THE PAST AND HER ARM GETS RED AND LUMP FORMS Latex (Verified Allergy, Mild, RASH, 09/04/16) Adhesives (Verified Allergy, Unknown, ., 09/04/16) Morphine (Verified Allergy, Unknown, 09/04/16) Levofloxacin (Verified Adverse Reaction, Intermediate, GI SYMPTOMS, 09/04/16 ) LOST 30 LBS. DUE TO GI SYMPTOMS Physical Exam Vital Signs Date Time Temp Pulse Resp B/P Pulse Ox O2 Delivery O2 Flow Rate FiO2 09/05/16 00:59 152/75 09/05/16 00:55 100 23 97 09/05/16 00:29 153/82 09/05/16 00:26 103 21 97 09/04/16 23:58 138/91 09/04/16 23:57 98 24 137/81 97 Room Air 09/04/16 23:28 93 23 97 09/04/16 22:59 93 23 97 Room Air 09/04/16 22:52 92 09/04/16 22:48 37.9 95 25 187/94 97 Room Air Physical Exam Vital signs reviewed. General: Chronically ill-appearing, elderly, non-verbal, warm to touch, in no significant distress. HEENT: No scleral icterus, PERRLA, neck supple. Atraumatic. Cardiovascular: Regular rate and rhythm, no extra sounds. Pulmonary: Lungs are generally clear to auscultation bilaterally, normal work of breathing. Abdomen: Soft, nontender, nondistended, positive bowel sounds. Musculoskeletal: Atraumatic, no peripheral edema. Neurologic: Unable to cooperate with exam. Skin: Warm, dry, no rash Medical Decision & Procedures ER Provider Diagnostic Interpretation: X-ray results as stated below per interpretation by me: Chest X-Ray Increased interstitial markings along the right lower lung alaniz and the left base. Possible vascular congestion, likely small pulmonary infiltrate. Laboratory Results 09/04/16 23:00 Red Blood Count 4.23, Mean Corpuscular Volume 87.7, Mean Corpuscular Hemoglobin 30.0, Mean Corpuscular Hemoglobin Concent 34.2, Mean Platelet Volume 9.9, Neutrophils (%) (Auto) 85.4, Lymphocytes (%) (Auto) 9.6, Monocytes (%) (Auto) 2.0, Eosinophils (%) (Auto) 2.7, Basophils (%) (Auto) 0.0, Neutrophils # (Auto) 6.35, Lymphocytes # (Auto) 0.71, Monocytes # (Auto) 0.15, Eosinophils # (Auto) 0.20, Basophils # (Auto) 0.00 09/04/16 23:00 Test 09/04/16 23:00 09/04/16 23:37 09/04/16 23:39 09/05/16 00:05 White Blood Count 7.43 K/uL (4.8-10.8) Red Blood Count 4.23 M/uL (4.2-5.4) Hemoglobin 12.7 g/dL (12.0-16.0) Hematocrit 37.1 % (37-47) Mean Corpuscular Volume 87.7 fL (80-100) Mean Corpuscular Hemoglobin 30.0 pg (25-34) Mean Corpuscular Hemoglobin Concent 34.2 g/dl (32-36) Platelet Count 212 K/uL (130-400) Mean Platelet Volume 9.9 fL (7.4-10.4) Neutrophils (%) (Auto) 85.4 % Lymphocytes (%) (Auto) 9.6 % Monocytes (%) (Auto) 2.0 % Eosinophils (%) (Auto) 2.7 % Basophils (%) (Auto) 0.0 % Neutrophils # (Auto) 6.35 K/uL (1.4-6.5) Lymphocytes # (Auto) 0.71 K/uL (1.2-3.4) Monocytes # (Auto) 0.15 K/uL (0.11-0.59) Eosinophils # (Auto) 0.20 K/uL (0-0.5) Basophils # (Auto) 0.00 K/uL (0-0.2) RDW Standard Deviation 44.1 fL (36.4-46.3) RDW Coefficient of Variation 13.9 % (11.5-14.5) Immature Granulocyte % (Auto) 0.3 % Immature Granulocyte # (Auto) 0.02 K/uL (0.00-0.02) Anion Gap 12.0 mmol/L (3-11) Est Creatinine Clear Calc Drug Dose 45.2 ml/min Estimated GFR () 72.9 Estimated GFR (Non- 62.9 BUN/Creatinine Ratio 16.5 (10-20) Calcium Level 9.1 mg/dl (8.5-10.1) Magnesium Level 1.3 mg/dl (1.8-2.4) Total Bilirubin 0.4 mg/dl (0.2-1) Direct Bilirubin 0.1 mg/dl (0-0.2) Aspartate Amino Transf (AST/SGOT) 24 U/L (15-37) Alanine Aminotransferase (ALT/SGPT) 12 U/L (12-78) Alkaline Phosphatase 64 U/L (45-117) Total Creatine Kinase 58 U/L (26-192) Creatine Kinase MB 1.2 ng/ml (0.5-3.6) Creatine Kinase MB Ratio 2.1 (0-3.0) Total Protein 7.0 gm/dl (6.4-8.2) Albumin 3.1 gm/dl (3.4-5.0) Bedside Troponin I 0.000 ng/ml (0-0.045) Bedside Lactic Acid Venous 1.69 mmol/L (0.90-1.70) Influenza Type A (RT-PCR) Neg for Influ A (NEG) Influenza Type B (RT-PCR) Neg for Influ B (NEG) Laboratory results per my review. Medications Administered Medications (Trade) Dose Ordered Sig/Wendy Route Start Time Stop Time Status Last Admin Dose Admin Sodium Chloride 1,000 ml @ 125 mls/hr Q8H STAT IV 09/04/16 23:06 09/05/16 02:40 DC 09/04/16 23:58 125 MLS/HR Aztreonam 2000 mg/ Dextrose 110 ml @ 100 mls/hr NOW STAT IV 09/04/16 23:23 09/05/16 01:16 DC 09/04/16 23:58 100 MLS/HR Acetaminophen/ Empty Bag (Ofirmev IV/ Empty Iv Bag 100ml) 65 ml @ 260 mls/hr NOW STAT IV 09/05/16 00:27 09/05/16 00:41 DC 09/05/16 01:05 260 MLS/HR ECG Indication: other (fever) Rate (beats per minute): 97 Rhythm: normal sinus Findings: no acute ischemic change, no ectopy, other (nonspecific ST change in lateral leads) ED Course 225: Past medical records reviewed. The patient was evaluated in room C4. A complete history and physical examination was performed. 2306: Sodium Chloride 1000 ml @ 125 mls/hr IV. 2315: Vancomycin HCl 1600 mg/Sodium Chloride 532ml @ 200mls/hr IV. 2323: Aztreonam 2000mg/Dextrose 110ml @ 100 mls/hr IV. 2356: I reviewed the patient's case with Dr. Yanes. He will evaluate the patient for further management. 0001: Upon reevaluation, the patient is resting comfortably. I discussed laboratory and radiographic results with the patient. I spoke with [place]. Yanes of the [facility]. The patient will be evaluated for further management and care. Medical Decision Fever: Influenza, other viral illness, pneumonia, urinary tract infection, metabolic abnormality, medication effect, cellulitis, meningitis, intra-abdominal source. This patient was evaluated and appeared to be in no significant distress. IV access was obtained and laboratory work was drawn. Patient is found to be febrile, given IV Tylenol as she does have an altered mentation. Blood cultures were obtained as well as a lactic acid. Patient's laboratory work reveals a normal white blood cell count. Review of previous records reveals a UTI from her most recent admission last couple of days. The antibiotics given do not treat enterococcus. Cultures were obtained prior to discharge and the patient was started on Macrobid however I feel this is not enough for this patient at this time. Patient was given IV vancomycin and aztreonam for the possibility of respiratory source. Case was discussed with the hospitalist service and she will be evaluated for further management. Family is aware of the plan and agrees. Consults Time Called: [id number] Consulting Physician: Dr. Yanes - [facility] Returned Call: [phone] I reviewed the patient's case with Dr. Yanes. He will evaluate the patient for further management. Impression Primary Impression: Enterococcus UTI Additional Impressions: Fever, Altered mental status Scribe Attestation The scribe's documentation has been prepared under my direction and personally reviewed by me in its entirety. I confirm that the note above accurately reflects all work, treatment, procedures, and medical decision making performed by me. Departure Information Dispostion Being Evaluated By Hospitalist Referrals Nba Palencia M.D. (PCP) Patient Instructions A Signature Page, [facility]
[2016-09-04 23:23] LABS: COMPLETE YES; EOS % 2.7 %; HEMATOCRIT 37.1 % (37-47); IG% 0.3 %; LYMPH % 9.6 %; LYMPH ABS # 0.71 K/uL (1.2-3.4); MEAN CELL VOLUME 87.7 fL (80-100); MEAN CORPUSCULAR HGB CONC 34.2 g/dl (32-36); MEAN PLATELET VOLUME 9.9 fL (7.4-10.4); NEUT % 85.4 %; PLATELET COUNT 212 K/uL (130-400); RED BLOOD COUNT 4.23 M/uL (4.2-5.4); WHITE BLOOD COUNT 7.43 K/uL (4.8-10.8)
[2016-09-04] MEDS ORDERED: AZTREONAM IV 2,000 MG in DEXTROSE 5% 100ML 100 ML IV STA (23:23)
[2016-09-04 23:51] LABS: BUN/CREATININE RATIO 16.5 (10-20); CALCIUM 9.1 mg/dl (8.5-10.1); CKMB/CK RATIO 2.1 (0-3.0); CREATININE 0.86 mg/dl (0.60-1.20); MAGNESIUM 1.3 mg/dl (1.8-2.4); POTASSIUM 3.7 mmol/L (3.5-5.1)
[2016-09-05] VITALS (9 sets, daily range): BP systolic 115–203; BP diastolic 67–88; PULSE 62–91; TEMP 36.5–37.6; O2SAT 94–97; Ht 160 cm; Wt 64.7 kg
[2016-09-05] MEDS ORDERED: ACETAMINOPHEN IV 650 MG in EMPTY BAG 0 ML IV STA (00:27)
[2016-09-05] MEDS ORDERED: ALBUT/IPRATROP 3MG/0.5MG NEB 3 ML VIAL INH PRN (01:15)
[2016-09-05] MEDS ORDERED: POLYETHYLENE (MIRALAX) 17 GM PACK PO PRN (01:30)
[2016-09-05] MEDS ORDERED: ACETAMINOPHEN 325 MG TAB PO PRN (01:30)
[2016-09-05] MEDS ORDERED: ALUMINUM/MAGNESIUM/SIMETH (MAALOX MAX) 30 ML UDC PO PRN (01:30)
[2016-09-05] MEDS ORDERED: MAGNESIUM HYDROXIDE SUSP 30 ML UDC PO PRN (01:30)
[2016-09-05] MEDS ORDERED: CEFTRIAXONE SOD INJ 1 GM in DEXTROSE 5% ADD-VANTAGE 50ML 50 ML IV SCH (01:30)
[2016-09-05] MEDS ORDERED: ONDANSETRON INJ 2 MG/ML 2 ML VIAL IV PRN (01:30)
--- NOTE | 2016-09-05 02:37 | HISTORY & PHYSICAL EXAMINATION ---
DATE OF ADMISSION: 09/05/2016 REASON FOR ADMISSION: Fever, cough. HISTORY OF PRESENT ILLNESS: This is an 81-year-old female with Alzheimer's dementia, type 2 diabetes, recurrent UTIs and recent admission with UTI and metabolic encephalopathy. The patient was actually discharged 09/04/2016 after being treated for UTI and encephalopathy. She was at home today when she again became confused and appeared to develop a persistent productive cough. She was also reported to be hypoxic at her usp, although this was not confirmed by the EMS service. In addition, there was a reported episode of emesis. The patient's daughter is at her bedside to confirm the above; however, the patient herself is unable to provide any information due to her underlying dementia and current mental status. She did have a fever confirmed on arrival to the Emergency Department. She was also coughing persistently during the examination. PAST MEDICAL HISTORY: 1. Recurrent UTIs. 2. Alzheimer's dementia. 3. Type 2 diabetes. 4. GERD. 5. Hyperlipidemia. 6. Hypertension. 7. IBS. 8. Recent admission with metabolic encephalopathy secondary to UTI. 9. Osteoporosis. 10. Rheumatoid arthritis. 11. The patient is treated with Sinemet, her daughter states that this is due to a shuffling gait which improved with the use of Sinemet; however, she is not officially diagnosed with Parkinson's. SURGICAL HISTORY: 1. Cataract surgery. 2. Hysterectomy. 3. Hernia surgery. SOCIAL HISTORY: The patient lives in a usp and does not smoke or drink. Her daughter participates in her care as does her . FAMILY HISTORY: Significant for CA, type is unspecified. MEDICATIONS: 1. ASA 81 mg daily. 2. Sinemet 25/100 p.o. t.i.d. 3. Cholecalciferol 1000 units daily. 4. Aricept 10 mg at bedtime. 5. Folic acid 1 mg daily. 6. Lisinopril 10 mg daily. 7. Memantine 10 mg b.i.d. 8. Metformin 500 mg b.i.d. 9. MTX 50 mg weekly. 10. MVI daily. 11. Omeprazole 40 mg daily. 12. Polyethylene glycol p.r.n. 13. Ranitidine 150 mg at bedtime. 14. Simethicone 80 mg t.i.d. 15. Simvastatin 20 mg daily. 16. Recently discharged with nitrofurantoin for a UTI. While in the hospital, she had apparently received ceftriaxone and Bactrim. REVIEW OF SYSTEMS: Cannot be obtained from this patient who was sent in for reported hypoxia, emesis, fevers and rigors. PHYSICAL EXAMINATION: VITAL SIGNS: Temperature 37.9, blood pressure 185/95, heart rate 95, respirations 25, satting at 97% on room air. GENERAL: This is a confused, lethargic elderly female. She is awake but does not respond to question or commands. HEAD AND NECK: The patient will not open her mouth for oral cavity examination. There is no icterus, no JVD. She is slightly pale. HEART: S1, 2, borderline tachycardic. No audible murmurs. LUNGS: Very poor effort. No clearly audible crackles or wheezing. Exam is compromised. ABDOMEN: Nontender in all quadrants. Bowel sounds are present. EXTREMITIES: Show no clubbing, cyanosis or edema. NEUROLOGIC: The patient is moving all 4 extremities. Does open her eyes to vocalization. Cannot currently follow any other commands due to lethargy and confusion. SKIN: Negative for rashes or ulcers. LABORATORY DATA: UA is pending. Previous UA was positive and microbiology was positive for E. faecalis which was pansensitive. Sodium 139, potassium 3.7, chloride 103, CO2 24, BUN 14, creatinine 0.86, glucose 133, mag is 1.3. White count is 7.4, hemoglobin 12.7, platelets 212. Chest x-ray is suspicious for left lower lobe infiltrate. ASSESSMENT AND PLAN: This is an 81-year-old female with a history of dementia, hypertension, diabetes and recent admission for a urinary tract infection with metabolic encephalopathy. She was discharged 09/04/2016, returns with increasing confusion, fever and rigors. The patient is admitted with the followin. Fevers, rigors, confusion. She does have a productive cough and an x-ray which is equivocal may represent a left lower lobe infiltrate. We will obtain an additional UA and cultures, blood cultures, and send the patient for a CT of the chest to rule out pneumonia. There is some concern for aspiration or hospital-acquired pneumonia, therefore, she has been placed on cefepime and Flagyl pending further results. Again, recent UA was positive for E. faecalis which was pansensitive, this is being repeated. We have no other clear source of infection at present, but considering her productive cough and reported hypoxia, a respiratory source may be likely. She has been provided with p.r.n. nebulizer treatments and placed on oxygen protocol on the telemetry unit. 2. Dementia and confusion. The patient does become encephalopathic with infections. She will be provided with IV fluids, antibiotics and monitored on telemetry as above. We will continue her Namenda and Aricept when she is able to tolerate p.o. 3. Impaired gait. The patient receives Sinemet for this which we will continue t.i.d. 4. Diabetes. She will be placed on a sliding scale in the hospital. 5. Rheumatoid arthritis. She has been provided with broad-spectrum antibiotics as she is technically immunocompromised due to MTX use. 6. Hypomagnesemia. Magnesium will be repleted. 7. Hypertension. She was hypertensive on arrival. She may have missed her daily medications and will be provided with IV medications as needed. Again, she is being monitored on telemetry. Total time for this admit including chart review, discussion with the ER physician, the patient's daughter at bedside, review of labs, imaging, microbiology results and recent records and medical record 45 minutes. BENITA
[2016-09-05 02:43] LABS: INFLUENZA A PCR Neg for Influ A (NEG); INFLUENZA B PCR Neg for Influ B (NEG)
[2016-09-05] MEDS ORDERED: GLUCOSE 10 TABS/TUBE PO PRN (02:45)
[2016-09-05] MEDS ORDERED: GLUCAGON FOR INJ 1 MG VIAL SQ PRN (02:45)
[2016-09-05] MEDS ORDERED: DEXTROSE 50% 50 ML SYR IV PRN (02:45)
[2016-09-05] MEDS ORDERED: GLUCOSE 40% GEL 15 GM TUBE PO PRN (02:45)
[2016-09-05] MEDS ORDERED: ENALAPRILAT IV 2.5 MG in DEXTROSE 5% 25ML 25 ML IV ONE (04:00)
[2016-09-05] MEDS: MAGNESIUM SULFATE 1GM / D5W 1 GM in PREMIXED IN D5W 100 ML IV SCH ×2 (04:12→05:25)
[2016-09-05] MEDS: METRONIDAZOLE / NSS 500 MG in PREMIXED NSS 100 ML IV SCH ×3 (05:01→19:50)
[2016-09-05] MEDS: NSS + 20MEQ KCL 1000ML 1,000 ML IV SCH ×3 (05:01→23:27)
[2016-09-05 05:47] LABS: URINE APPEARANCE CLEAR (CLEAR); URINE BILIRUBIN NEG (NEG); URINE COLOR YELLOW; URINE NITRITE NEG (NEG); URINE PH 5.5 (4.5-7.5); URINE SPECIFIC GRAVITY 1.019 (1.000-1.030); UROBILINOGEN NEG (NEG); ZZURINE CULT IF INDIC CATH NO
[2016-09-05 05:55] LABS: MANUAL MICROSCOPIC REQUIRED? NO; REVIEW REQ? NO
[2016-09-05] MEDS: CEFEPIME IV 1,000 MG in DEXTROSE 5% 100ML 100 ML IV SCH ×3 (06:27→21:25)
[2016-09-05] MEDS: HEPARIN SOD 5000 UNIT/0.5 ML CARP SQ SCH ×3 (06:27→21:24)
--- NOTE | 2016-09-05 06:31 | DIAGNOSTIC IMAGING REPORT ---
CHEST ONE VIEW PORTABLE CLINICAL HISTORY: Fever, cough, SOB COMPARISON STUDY: Chest radiograph September 02, 2016. FINDINGS: No pneumothorax or pleural effusion is identified. There is minimal left basilar opacity. There is no evidence of pulmonary edema. Cardiac size is normal. Mediastinal contours are normal. A lucent lesion with sclerotic rim within the proximal right humerus is unchanged per IMPRESSION: Minimal left basilar opacity which may reflect atelectasis or consolidation. Electronically signed by: Mynor Michel M.D. 09/05/2016 6:29 AM
--- NOTE | 2016-09-05 07:06 | DIAGNOSTIC IMAGING REPORT ---
CT OF THE CHEST WITHOUT IV CONTRAST CLINICAL HISTORY: pneumonia COMPARISON STUDY: Chest x-ray dated 09/04/2016, CT scan dated 10/21/2011 CT DOSE: 320.82 mGy.cm TECHNIQUE: CT of the thorax was performed from the thoracic inlet to the lung bases. Images are reviewed in the axial, sagittal, and coronal planes. IV contrast was not administered for this examination. FINDINGS: Thyroid: There is a multinodular thyroid gland with a 9 mm substernal left lobe nodule. Thoracic aorta: The thoracic aorta is normal in course and caliber, noting standard 3 vessel arch anatomy. Heart: The heart is normal in size and configuration, without pericardial effusion. Lungs and pleural spaces: There is respiratory motion artifact. There are bibasal or dependent opacities likely atelectatic although an inflammatory process could appear similar. There is mild interstitial thickening. There is a trace left pleural effusion Mediastinum: Mediastinal lymph nodes at the upper limits of normal in size Ellie: There is no pathologic hilar adenopathy given the limitations of a noncontrast study Axilla: Clear. Upper abdomen: There is a partially visualized 15 mm rim calcified right renal lesion Skeletal structures: There are no lytic or blastic osseous lesions. IMPRESSION: 1. Dependent bibasilar opacities left greater than right, likely atelectatic although an inflammatory process could appear similar 2. Trace left pleural effusion 3. No evidence of pathologic adenopathy 4. Partially visualized 15 mm rim calcified right renal lesion Electronically signed by: Greg Veliz M.D. 09/05/2016 7:05 AM
[2016-09-05] MEDS: INSULIN ASPART 100 UNITS/ML 3 ML PEN SC SCH ×4 (08:49→21:24)
[2016-09-05] MEDS ORDERED: NON-FORMULARY MEDICATION (Probiotic Product (Probiotic) 1 CAP) PO SCH (09:00)
[2016-09-05] MEDS: LACTOBACILLUS ACIDOPHILUS 1 GM PACK PO SCH ×3 (09:26→17:13)
[2016-09-05] MEDS: SIMETHICONE 80 MG CHEW PO SCH ×3 (09:26→17:00)
[2016-09-05] MEDS: CARBIDOPA/LEVODOPA 25/100MG TAB PO SCH ×3 (09:26→17:13)
[2016-09-05] MEDS ORDERED: ACETAMINOPHEN IV 650 MG / 65ML IV PRN (11:30)
[2016-09-05] MEDS ORDERED: NURSING VERBAL MED ORDER ONE (11:30)
[2016-09-05] MEDS: ASPIRIN 81 MG ECTAB PO SCH (14:50)
[2016-09-05] MEDS: PANTOprazole SOD 40 MG TAB PO SCH (14:51)
[2016-09-05] MEDS: LISINOPRIL 10 MG TAB PO SCH (14:51)
[2016-09-05] MEDS: MEMANTINE 10 MG TAB PO SCH ×2 (14:51→21:22)
[2016-09-05] MEDS: CHOLECALCIFEROL 1000 INTER.UNIT TAB PO SCH (14:51)
--- NOTE | 2016-09-05 15:08 | Progress Note ---
Subjective Date of Service: Sep 05, 2016. Subjective Pt evaluation today including: conversation w/ patient, conversation w/ family , physical exam, chart review, lab review, review of studies, conversation w/ bus info consultant, review of inpatient medication list blinking eyes but no open eyes, not wake up talk, but didn't squeeze my hands , moving the lower extremities and feet Problem List Medical Problems: (1) Altered mental status Status: Acute (2) Dementia, Unspecified, Without Behavioral Disturbance Status: Chronic (3) Diabetes Status: Chronic (4) Enterococcus UTI Status: Acute (5) Esophageal Reflux Status: Chronic (6) Fever Status: Acute (7) Hyperlipidemia Nec/Nos Status: Chronic (8) Hypertension Nos Status: Chronic (9) Irritable Bowel Syndrome Status: Chronic (10) Osteoarthros Nos-Unspec Status: Chronic (11) Osteoporosis Nos Status: Chronic (12) UTI (urinary tract infection) Status: Acute Review of Systems Constitutional: + problem reported (limited because of not wake up to talk) Objective Vital Signs Date Time Temp Pulse Resp B/P Pulse Ox O2 Delivery O2 Flow Rate FiO2 09/05/16 14:28 36.7 09/05/16 12:00 Room Air 09/05/16 11:15 37.6 88 18 130/67 94 Room Air 09/05/16 08:00 94 Room Air 09/05/16 07:20 36.9 91 18 146/77 94 Room Air 09/05/16 03:53 37.4 87 18 135/75 Room Air 09/05/16 03:44 37.4 87 18 135/75 95 Room Air 09/05/16 03:15 86 21 121/73 96 Room Air 09/05/16 02:09 37.6 112 21 95 Room Air 09/05/16 02:06 101 09/05/16 01:59 126/71 09/05/16 01:53 101 22 96 09/05/16 01:29 126/72 09/05/16 01:24 92 20 96 09/05/16 00:59 152/75 09/05/16 00:55 100 23 97 09/05/16 00:29 153/82 09/05/16 00:26 103 21 97 09/04/16 23:58 138/91 09/04/16 23:57 98 24 137/81 97 Room Air 09/04/16 23:28 93 23 97 1/2/17 22:59 93 23 97 Room Air 09/04/16 22:52 92 09/04/16 22:48 37.9 95 25 187/94 97 Room Air Physical Exam General Appearance: + pertinent finding (very lethargic, not wake up, blinking eyes) Eyes: normal inspection ENT: normal ENT inspection, hearing grossly normal Neck: supple, no adenopathy Respiratory/Chest: chest non-tender, normal breath sounds, no respiratory distress, + decreased breath sounds Cardiovascular: regular rate, rhythm Abdomen: normal bowel sounds, non tender Extremities: normal range of motion, normal inspection Neurologic/Psychiatric: + pertinent finding (no facial drooping, no weakness or dripping) Skin: normal color, warm/dry Laboratory Results Last 24 Hours Test 09/04/16 23:00 09/04/16 23:37 09/04/16 23:39 09/05/16 00:05 White Blood Count 7.43 K/uL Red Blood Count 4.23 M/uL Hemoglobin 12.7 g/dL Hematocrit 37.1 % Mean Corpuscular Volume 87.7 fL Mean Corpuscular Hemoglobin 30.0 pg Mean Corpuscular Hemoglobin Concent 34.2 g/dl Platelet Count 212 K/uL Mean Platelet Volume 9.9 fL Neutrophils (%) (Auto) 85.4 % Lymphocytes (%) (Auto) 9.6 % Monocytes (%) (Auto) 2.0 % Eosinophils (%) (Auto) 2.7 % Basophils (%) (Auto) 0.0 % Neutrophils # (Auto) 6.35 K/uL Lymphocytes # (Auto) 0.71 K/uL Monocytes # (Auto) 0.15 K/uL Eosinophils # (Auto) 0.20 K/uL Basophils # (Auto) 0.00 K/uL RDW Standard Deviation 44.1 fL RDW Coefficient of Variation 13.9 % Immature Granulocyte % (Auto) 0.3 % Immature Granulocyte # (Auto) 0.02 K/uL Sodium Level 139 mmol/L Potassium Level 3.7 mmol/L Chloride Level 103 mmol/L Carbon Dioxide Level 24 mmol/L Anion Gap 12.0 mmol/L Blood Urea Nitrogen 14 mg/dl Creatinine 0.86 mg/dl Est Creatinine Clear Calc Drug Dose 45.2 ml/min Estimated GFR () 72.9 Estimated GFR (Non- 62.9 BUN/Creatinine Ratio 16.5 Random Glucose 133 mg/dl Calcium Level 9.1 mg/dl Magnesium Level 1.3 mg/dl Total Bilirubin 0.4 mg/dl Direct Bilirubin 0.1 mg/dl Aspartate Amino Transf (AST/SGOT) 24 U/L Alanine Aminotransferase (ALT/SGPT) 12 U/L Alkaline Phosphatase 64 U/L Total Creatine Kinase 58 U/L Creatine Kinase MB 1.2 ng/ml Creatine Kinase MB Ratio 2.1 Total Protein 7.0 gm/dl Albumin 3.1 gm/dl Bedside Troponin I 0.000 ng/ml Bedside Lactic Acid Venous 1.69 mmol/L Influenza Type A (RT-PCR) Neg for Influ A Influenza Type B (RT-PCR) Neg for Influ B Test 09/05/16 05:10 09/05/16 07:33 09/05/16 11:50 Urine Color YELLOW Urine Appearance CLEAR Urine pH 5.5 Urine Specific [place] 1.019 Urine Protein NEG Urine Glucose (UA) NEG Urine Ketones 1+ Urine Occult Blood NEG Urine Nitrite NEG Urine Bilirubin NEG Urine Urobilinogen NEG Urine Leukocyte Esterase NEG Bedside Glucose 190 mg/dl 159 mg/dl Assessment and Plan This is an 81-year-old female with a history of dementia, hypertension, diabetes and recent admission for a urinary tract infection with metabolic encephalopathy admitted on 09/05/2015 b/c fever and altered mental status just discharged 09/04/2016, it was yesterday, - Fevers, rigors, confusion upon admission. uti, or pna cont abx ID consult - severe AMS, likely from infection plus baseline dementia, DD included sepsis/ uti/pna, others includes meningitis and CVA she moves 4 exts, no facial droop, I am hold MRI now, I don't think she has meningitis Dementia and confusion. bed ridding and impaired gait prior to admission, The patient receives Sinemet for this which we will continue t.i.d. Diabetes. She will be placed on a sliding scale in the hospital. Rheumatoid arthritis. She has been provided with broad-spectrum antibiotics as she is technically immunocompromised due to MTX use. Hypomagnesemia. f/u Hypertension. She was hypertensive on arrival. Gi and DVt px d/sun last discharge MD, pt was [id number] prior to last discharge Continued [facility] stay due to: multiple IV medications needed Discharge planning: home
--- NOTE | 2016-09-05 15:10 | Progress Note ---
Progress Note ID Consult Dictated #[id number] A/P 1. Fever 2. UTI - diagnosed last admission, E. faecalis -Can continue abx pending cultures, check sputum culture if able -Would continue vanco to treat previously diagnosed uti -will follow, thank you
--- NOTE | 2016-09-05 16:00 | INFECT. DISEASE CONSULTATION ---
DATE OF CONSULTATION: 09/05/2016 DATE OF CONSULTATION: 09/05/2016. REQUESTING PHYSICIAN: Dr. Yanes. HISTORY OF PRESENT ILLNESS: This is an 81-year-old female who was admitted today after returning to her halfway facility where she was found to have cough. She was initially admitted on the . At that time she had a urine culture which grew michelle sensitive enterococcus. She was treated with Rocephin and then transitioned to oral Macrobid for a 7-day course. She was discharged back to her nursing facility on the . She had continued fever and productive cough and was readmitted yesterday. She did undergo a CAT scan of the chest today which showed bibasilar opacities, likely reflective of atelectasis. She had a flu swab which was negative. She does have a history of advanced dementia and Alzheimer's and can provide very little history. She denies any fevers or chills. She denies any chest pain. She does admit to cough which is occasionally productive of sputum. She denies any nausea, vomiting but states she does have some abdominal pain. She is unable to answer any questions regarding urinary symptoms. She was started initially on vancomycin, aztreonam and Rocephin and then was changed today to cefepime and metronidazole. She has had fever since admission to the hospital, her T-max is 37.9. Her current temperature is 37.6. She appears to be tolerating her antibiotics well. Blood cultures are pending. Her white blood cell count is within normal limits. All remaining review of systems are reviewed and are limited. PAST MEDICAL HISTORY: Significant for Alzheimer's dementia, type 2 diabetes, GERD, high cholesterol, hypertension, irritable bowel syndrome, recent admission with urinary tract infection with pansensitive enterococcus on 09/02/2016, osteoporosis and rheumatoid arthritis. PAST SURGICAL HISTORY: Significant for cataracts, hernia surgery and hysterectomy. FAMILY HISTORY: Noncontributory. SOCIAL HISTORY: Significant for resident at a local nursing facility. She has a known history of tobacco. CURRENT MEDICATIONS: Include Aricept, Zantac, Zocor, acetaminophen, aspirin, vitamin D, folic acid, lisinopril, Namenda, Protonix, Sinemet, lactobacillus, insulin, subQ heparin, cefepime and metronidazole, Maalox, milk of magnesia, Zofran, MiraLax and DuoNebs. ALLERGIES: INCLUDE ADHESIVE TAPE, LATEX, LEVAQUIN, MORPHINE AND PENICILLIN. PHYSICAL EXAMINATION: VITAL SIGNS: T-max is 37.9, current temperature is 36.7, pulse 88, respiratory rate 18, blood pressure 130/67, oxygen saturation is 94% on room air. GENERAL: She is awake and does not appear to be in any distress. She is able to answer some questions. HEAD, EYES, EARS, NOSE, AND THROAT: Mucous membranes are moist. HEART: Regular. LUNGS: Clear anteriorly with poor inspiratory effort. ABDOMEN: Soft, nontender, nondistended. There is no edema. SKIN: Without rash. LABORATORY STUDIES: CBC yesterday reveals a white blood cell count of 7.4, hemoglobin 12.7, hematocrit 37.1, platelets 212. Chemistry panel yesterday reveals a sodium of 139, potassium 3.7, chloride 103, bicarbonate 24, BUN 14, creatinine 0.8, glucose is 133. LFTs are within normal limits. Urinalysis done on the was negative. Flu swab was negative. Blood cultures are pending. A urine culture from the again had pansensitive enterococcus. CAT scan of the chest was reviewed previously. ASSESSMENT AND PLAN: Fever, questionable secondary to previously diagnosed urinary tract infection versus atelectasis versus developing pneumonia. She is not coughing on my examination and appears to be in no respiratory distress. She can be continued on broad-spectrum antibiotics pending the results of cultures. With her current regimen of cefepime and metronidazole she is currently not receiving any coverage for her previously diagnosed urinary tract infection. She did get a dose of vancomycin in the Emergency Room and this certainly could be continued to treat her enterococcus with her penicillin allergy. We will follow along with you. Thank you for this consultation.
[2016-09-05] MEDS: SIMVASTATIN 20 MG TAB PO SCH (21:22)
[2016-09-05] MEDS: RANITIDINE HCL 150 MG TAB PO SCH (21:22)
[2016-09-05] MEDS: DONEPEZIL HCL 5 MG TAB PO SCH (21:22)
[2016-09-06 00:32] VITALS: BP 118/75; PULSE 60; TEMP 36.6; O2SAT 93
[2016-09-06] MEDS: METRONIDAZOLE / NSS 500 MG in PREMIXED NSS 100 ML IV SCH ×2 (04:15→12:15)
[2016-09-06 04:51] VITALS: BP 151/80; PULSE 71; TEMP 36.6; O2SAT 95
[2016-09-06] MEDS: CEFEPIME IV 1,000 MG in DEXTROSE 5% 100ML 100 ML IV SCH ×3 (05:54→23:16)
[2016-09-06] MEDS: HEPARIN SOD 5000 UNIT/0.5 ML CARP SQ SCH ×3 (05:57→20:58)
[2016-09-06 07:49] VITALS: BP 139/77; PULSE 74; TEMP 36.6; O2SAT 95
[2016-09-06] MEDS: CARBIDOPA/LEVODOPA 25/100MG TAB PO SCH ×3 (07:56→16:35)
[2016-09-06] MEDS: LACTOBACILLUS ACIDOPHILUS 1 GM PACK PO SCH ×3 (07:56→16:35)
[2016-09-06] MEDS: ASPIRIN 81 MG ECTAB PO SCH (07:56)
[2016-09-06] MEDS: LISINOPRIL 10 MG TAB PO SCH (07:56)
[2016-09-06] MEDS: CHOLECALCIFEROL 1000 INTER.UNIT TAB PO SCH (07:56)
[2016-09-06] MEDS: MEMANTINE 10 MG TAB PO SCH ×2 (07:57→20:51)
[2016-09-06] MEDS: SIMETHICONE 80 MG CHEW PO SCH ×3 (07:57→16:36)
[2016-09-06] MEDS: PANTOprazole SOD 40 MG TAB PO SCH (07:57)
[2016-09-06 08:10] VITALS: O2SAT 95
[2016-09-06] MEDS: INSULIN ASPART 100 UNITS/ML 3 ML PEN SC SCH ×4 (08:17→20:59)
[2016-09-06] MEDS: NSS + 20MEQ KCL 1000ML 1,000 ML IV SCH (10:27)
--- NOTE | 2016-09-06 10:46 | Progress Note ---
Subjective Date of Service: Sep 06, 2016. Subjective pt afebrile overnight. continues on emperic abx. No am labs. blood cultures negative. no new imaging. Problem List Medical Problems: (1) Altered mental status Status: Acute (2) Dementia, Unspecified, Without Behavioral Disturbance Status: Chronic (3) Diabetes Status: Chronic (4) Enterococcus UTI Status: Acute (5) Esophageal Reflux Status: Chronic (6) Fever Status: Acute (7) Hyperlipidemia Nec/Nos Status: Chronic (8) Hypertension Nos Status: Chronic (9) Irritable Bowel Syndrome Status: Chronic (10) Osteoarthros Nos-Unspec Status: Chronic (11) Osteoporosis Nos Status: Chronic (12) UTI (urinary tract infection) Status: Acute Objective Vital Signs Date Time Temp Pulse Resp B/P Pulse Ox O2 Delivery O2 Flow Rate FiO2 09/06/16 08:10 95 Room Air 09/06/16 08:10 Room Air 09/06/16 07:49 36.6 74 18 139/77 95 Room Air 09/06/16 04:51 36.6 71 16 151/80 95 09/06/16 04:10 Room Air 09/06/16 00:32 36.6 60 18 118/75 93 Room Air 09/06/16 00:00 Room Air 09/05/16 20:00 Room Air 09/05/16 19:50 36.5 73 16 128/70 97 Room Air 09/05/16 16:00 Room Air 09/05/16 15:09 75 18 115/67 94 Room Air 09/05/16 14:28 36.7 09/05/16 12:00 Room Air 09/05/16 11:15 37.6 88 18 130/67 94 Room Air Laboratory Results Item Value Date Time Blood Culture - Preliminary Resulted 09/04/16 2330 Blood NO GROWTH TO DATE. Blood Culture - Preliminary Resulted 09/04/16 2300 Blood NO GROWTH TO DATE. Last 24 Hours Test 09/05/16 11:50 09/05/16 15:25 09/05/16 16:59 09/05/16 20:22 Bedside Glucose 159 mg/dl 144 mg/dl 229 mg/dl Vitamin B12 Level 453 pg/mL Folate 12.12 ng/mL Test 09/06/16 06:13 09/06/16 07:36 Ammonia 13.0 umol/L Bedside Glucose 114 mg/dl Assessment and Plan (1) UTI (lower urinary tract infection) Status: Acute Assessment & Plan: fever resolved, would continue abx for previous uti - was on macrobid at d/c. follow cultures Continued [facility] stay due to: multiple IV medications needed Discharge planning: home
--- NOTE | 2016-09-06 12:41 | Progress Note ---
Subjective Date of Service: Sep 06, 2016. Subjective Pt evaluation today including: conversation w/ patient, conversation w/ family , physical exam, chart review, lab review, review of studies, review of inpatient medication list Totally woke up, conversational, no complaining, nurse and daughter reported no appetite, poor oral intake Problem List Medical Problems: (1) Altered mental status Status: Acute (2) Dementia, Unspecified, Without Behavioral Disturbance Status: Chronic (3) Diabetes Status: Chronic (4) Enterococcus UTI Status: Acute (5) Esophageal Reflux Status: Chronic (6) Fever Status: Acute (7) Hyperlipidemia Nec/Nos Status: Chronic (8) Hypertension Nos Status: Chronic (9) Irritable Bowel Syndrome Status: Chronic (10) Osteoarthros Nos-Unspec Status: Chronic (11) Osteoporosis Nos Status: Chronic (12) UTI (urinary tract infection) Status: Acute Review of Systems Constitutional: + fatigue, + weakness, No chills, No fever, No problem reported , No sweats, No weight loss Eyes: No diplopia, No discharge, No eye pain, No redness, No worsening of vision ENT: No dental problems, No hearing loss, No nasal symptoms, No sore throat, No tinnitus, No trouble swallowing, No unusual epistaxis Respiratory: No cough, No dyspnea at rest, No dyspnea on exertion, No hemoptysis, No shortness of breath, No sputum, No wheezing Cardiac: No PND, No chest pain, No claudication, No edema, No orthopnea, No palpitations Abdomen: No constipation, No diarrhea, No nausea, No pain, No vomiting Musculoskeletal: No calf pain, No joint pain, No muscle pain, No swelling Female : No abnormal vaginal bleeding, No dysuria, No hematuria, No incontinence, No urinary frequency, No vaginal discharge Neurologic: + memory loss, No balance problems, No numbness/tingling, No paralysis, No vertigo, No weakness Psychiatric: No anhedonism, No anxiety, No depression symptoms, No insomnia, No substance abuse Heme: No abnormal bleeding/bruising, No clotting problems, No night sweats, No swollen lymph nodes Endo: No excessive thirst, No excessive urination, No fatigue Skin: No bleeding, No color change, No itch, No new/changing skin lesions, No rash Objective Vital Signs Date Time Temp Pulse Resp B/P Pulse Ox O2 Delivery O2 Flow Rate FiO2 09/06/16 12:20 Room Air 09/06/16 08:10 95 Room Air 09/06/16 08:10 Room Air 09/06/16 07:49 36.6 74 18 139/77 95 Room Air 09/06/16 04:51 36.6 71 16 151/80 95 09/06/16 04:10 Room Air 09/06/16 00:32 36.6 60 18 118/75 93 Room Air 09/06/16 00:00 Room Air 09/05/16 20:00 Room Air 09/05/16 19:50 36.5 73 16 128/70 97 Room Air 09/05/16 16:00 Room Air 09/05/16 15:09 75 18 115/67 94 Room Air 09/05/16 14:28 36.7 Physical Exam General Appearance: WD/WN, no apparent distress Eyes: normal inspection, PERRL, EOMI, sclerae normal ENT: normal ENT inspection, hearing grossly normal, pharynx normal Neck: supple, no adenopathy, thyroid normal, no JVD, no carotid bruits, trachea midline Respiratory/Chest: chest non-tender, no respiratory distress, no accessory muscle use, + decreased breath sounds Cardiovascular: regular rate, rhythm, no edema, no gallop, no JVD, no murmur Abdomen: normal bowel sounds, non tender, soft, no organomegaly, no pulsatile mass Extremities: normal range of motion, non-tender, normal inspection, no pedal edema, no calf tenderness, normal capillary refill, pelvis stable Neurologic/Psychiatric: 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, no motor/sensory deficits, alert, normal mood/affect, oriented x 3 Skin: normal color, warm/dry, no rash Lymphatic: no adenopathy Laboratory Results Last 24 Hours Test 09/05/16 15:25 09/05/16 16:59 09/05/16 20:22 09/06/16 06:13 Vitamin B12 Level 453 pg/mL Folate 12.12 ng/mL Bedside Glucose 144 mg/dl 229 mg/dl Ammonia 13.0 umol/L Test 09/06/16 07:36 Bedside Glucose 114 mg/dl Assessment and Plan This is an 81-year-old female with a history of dementia, hypertension, diabetes and recent admission for a urinary tract infection with metabolic encephalopathy admitted on 09/05/2015 b/c fever and altered mental status just discharged 09/04/2016, it was yesterday, - Possible sepsis upon admission with Fevers, rigors, confusion upon admission. uti, or pna cont abx ID noted - severe AMS, likely from infection plus baseline dementia, DD included sepsis/uti/pna, others includes meningitis and CVA she moves 4 exts, no facial droop, I am hold MRI yesterday, I don't think she has meningitis Today patient totally woke up, I don't feel she need to have further brain imaging studies , or need to have further concerned of meningitis Dementia is in baseline bed ridding and impaired gait prior to admission, The patient receives Sinemet for this which we will continue t.i.d. Diabetes. Continue a sliding scale in the hospital. Rheumatoid arthritis. She has been provided with broad-spectrum antibiotics as she is technically immunocompromised due to MTX use. Hypomagnesemia. f/u Hypertension. She was hypertensive on arrival. Gi and DVt px Discussed with patient's daughter and about patient's condition and care plan answer all questions, PTOT social worker palliative care consultation Continued [facility] stay due to: multiple IV medications needed Discharge planning: home
[2016-09-06 15:17] VITALS: BP 139/77; PULSE 74; TEMP 36.6; O2SAT 95
[2016-09-06 16:00] VITALS: O2SAT 95
[2016-09-06] MEDS: AMOXICILLIN 500 MG CAP PO SCH ×2 (16:33→20:53)
[2016-09-06] MEDS: RANITIDINE HCL 150 MG TAB PO SCH (20:51)
[2016-09-06] MEDS: DONEPEZIL HCL 5 MG TAB PO SCH (20:52)
[2016-09-06] MEDS: SIMVASTATIN 20 MG TAB PO SCH (20:52)
[2016-09-07 00:44] VITALS: BP 165/89; PULSE 74; TEMP 36.7; O2SAT 97
[2016-09-07] MEDS: CEFEPIME IV 1,000 MG in DEXTROSE 5% 100ML 100 ML IV SCH ×2 (05:35→13:33)
[2016-09-07] MEDS: HEPARIN SOD 5000 UNIT/0.5 ML CARP SQ SCH ×3 (05:36→21:31)
[2016-09-07] MEDS: CHOLECALCIFEROL 1000 INTER.UNIT TAB PO SCH (07:34)
[2016-09-07] MEDS: ASPIRIN 81 MG ECTAB PO SCH (07:34)
[2016-09-07] MEDS: SIMETHICONE 80 MG CHEW PO SCH ×3 (07:35→17:09)
[2016-09-07] MEDS: LACTOBACILLUS ACIDOPHILUS 1 GM PACK PO SCH ×3 (07:35→17:10)
[2016-09-07] MEDS: PANTOprazole SOD 40 MG TAB PO SCH (07:35)
[2016-09-07] MEDS: CARBIDOPA/LEVODOPA 25/100MG TAB PO SCH ×3 (07:35→17:11)
[2016-09-07] MEDS: LISINOPRIL 10 MG TAB PO SCH (07:36)
[2016-09-07] MEDS: MEMANTINE 10 MG TAB PO SCH ×2 (07:36→20:26)
[2016-09-07] MEDS: AMOXICILLIN 500 MG CAP PO SCH ×3 (07:37→20:26)
[2016-09-07 07:39] VITALS: BP 164/76; PULSE 93; TEMP 36.8; O2SAT 93
[2016-09-07] MEDS: INSULIN ASPART 100 UNITS/ML 3 ML PEN SC SCH ×4 (07:59→20:28)
--- NOTE | 2016-09-07 13:29 | Progress Note ---
Subjective Date of Service: Sep 07, 2016. Subjective Pt evaluation today including: conversation w/ patient, physical exam, chart review, lab review, review of studies, conversation w/ senior business consultant, review of inpatient medication list Pleasant, sitting up to chair, feeding by self, report eating okay, no complaining Problem List Medical Problems: (1) Altered mental status Status: Acute (2) Dementia, Unspecified, Without Behavioral Disturbance Status: Chronic (3) Diabetes Status: Chronic (4) Enterococcus UTI Status: Acute (5) Esophageal Reflux Status: Chronic (6) Fever Status: Acute (7) Hyperlipidemia Nec/Nos Status: Chronic (8) Hypertension Nos Status: Chronic (9) Irritable Bowel Syndrome Status: Chronic (10) Osteoarthros Nos-Unspec Status: Chronic (11) Osteoporosis Nos Status: Chronic (12) UTI (urinary tract infection) Status: Acute Review of Systems Constitutional: + fatigue, + weakness, No chills, No fever, No problem reported , No see HPI, No sweats, No weight loss Eyes: No diplopia, No discharge, No eye pain, No problem reported, No redness, No see HPI, No worsening of vision ENT: No dental problems, No hearing loss, No nasal symptoms, No problem reported, No see HPI, No sore throat, No tinnitus, No trouble swallowing, No unusual epistaxis Respiratory: No cough, No dyspnea at rest, No dyspnea on exertion, No hemoptysis, No problem reported, No see HPI, No shortness of breath, No sputum, No wheezing Cardiac: No PND, No chest pain, No claudication, No edema, No orthopnea, No palpitations, No problem reported, No see HPI Abdomen: No GI bleeding, No constipation, No diarrhea, No nausea, No pain, No problem reported, No see HPI, No vomiting Musculoskeletal: No calf pain, No joint pain, No muscle pain, No problem reported, No see HPI, No swelling Female : No abnormal vaginal bleeding, No dysuria, No hematuria, No incontinence, No problem reported, No see HPI, No urinary frequency, No vaginal discharge Neurologic: No balance problems, No memory loss, No numbness/tingling, No paralysis, No problem reported, No see HPI, No vertigo, No weakness Psychiatric: No anhedonism, No anxiety, No depression symptoms, No insomnia, No problem reported, No see HPI, No substance abuse Endo: No excessive thirst, No excessive urination, No fatigue, No problem reported, No see HPI Skin: No bleeding, No color change, No itch, No new/changing skin lesions, No problem reported, No rash, No see HPI Objective Vital Signs Date Time Temp Pulse Resp B/P Pulse Ox O2 Delivery O2 Flow Rate FiO2 09/07/16 08:15 Room Air 09/07/16 07:39 36.8 93 18 164/76 93 Room Air 09/07/16 00:44 36.7 74 18 165/89 97 Room Air 09/07/16 00:00 Room Air 09/06/16 16:00 95 Room Air 09/06/16 15:17 36.6 74 18 95 Physical Exam General Appearance: WD/WN, no apparent distress, + pertinent finding (pleasant but confused) Eyes: normal inspection, PERRL, EOMI, sclerae normal ENT: normal ENT inspection, hearing grossly normal, pharynx normal Neck: supple, no adenopathy, thyroid normal, no JVD, no carotid bruits, trachea midline Respiratory/Chest: chest non-tender, normal breath sounds, no respiratory distress, no accessory muscle use, + decreased breath sounds Cardiovascular: regular rate, rhythm, no edema, no gallop, no JVD, no murmur Abdomen: normal bowel sounds, non tender, soft, no organomegaly, no pulsatile mass Extremities: normal range of motion, non-tender, normal inspection, no pedal edema, no calf tenderness, normal capillary refill, pelvis stable Neurologic/Psychiatric: 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, no motor/sensory deficits, alert, normal mood/affect, oriented x 3 Skin: normal color, warm/dry, no rash Lymphatic: no adenopathy Laboratory Results Last 24 Hours Test 09/06/16 16:05 09/06/16 20:32 09/07/16 07:56 09/07/16 11:28 Bedside Glucose 140 mg/dl 131 mg/dl 145 mg/dl 148 mg/dl Assessment and Plan This is an 81-year-old female with a history of dementia, hypertension, diabetes and recent admission for a urinary tract infection with metabolic encephalopathy admitted on 09/05/2015 b/c fever and altered mental status Significant improved and stable just discharged 09/04/2016, - Possible sepsis upon admission with Fevers, rigors, confusion upon admission. uti, or pna, blood culture negative, UA was negative Review of chest CT again possible not really significant pneumonia or infiltration cont abx ID noted -Partially visualized 15 mm rim calcified right renal lesion which is incidental findings per CT studies need to follow-up with PCP repeat the CT studies in 3 months - severe AMS upon admission likely from infection plus baseline dementia, totally resolved DD included sepsis/uti/pna, others includes meningitis and CVA she moves 4 exts, no facial droop, I am hold MRI yesterday, I don't think she has meningitis Dementia is in baseline bed ridding and impaired gait prior to admission, The patient receives Sinemet for this which we will continue t.i.d. Diabetes. Continue a sliding scale in the hospital. Rheumatoid arthritis. She has been provided with broad-spectrum antibiotics as she is technically immunocompromised due to MTX use. Hypomagnesemia. f/u Hypertension. She was hypertensive on arrival. Gi and DVt px In previous admission patient's daughter refused for the placement, therefore was discharged to personal care Patient is high risk of readmission I called to daughter, no us no answer We'll continue to discuss with patient's daughter and about patient's condition and care plan Has requested RN to make sure PT OT to see patient today, and watch case polisher for the discharge plan Possible tomorrow to detention after we know what be the best antibiotic for her Per conversation with the pharmacy, the penicillin and allergy of patient was watery minimal skin rash therefore Augmentin was started Augmentin will cover for possible aspiration pneumonia, and also for possible recent enterococcal faecalis UTI Therefore IV antibiotics should be okay to discontinued if agree with infectious disease Continued [facility] stay due to: multiple IV medications needed Discharge planning: home
--- NOTE | 2016-09-07 13:39 | Progress Note ---
Subjective Date of Service: Sep 07, 2016. Subjective no events, remains afebrile. abx adjusted to augmentin to treat for both previous diagnosed uti and ? aspiration. blood cultures remain negative, stable bp. no new labs today. ? d/c tomorrow. Problem List Medical Problems: (1) Altered mental status Status: Acute (2) Dementia, Unspecified, Without Behavioral Disturbance Status: Chronic (3) Diabetes Status: Chronic (4) Enterococcus UTI Status: Acute (5) Esophageal Reflux Status: Chronic (6) Fever Status: Acute (7) Hyperlipidemia Nec/Nos Status: Chronic (8) Hypertension Nos Status: Chronic (9) Irritable Bowel Syndrome Status: Chronic (10) Osteoarthros Nos-Unspec Status: Chronic (11) Osteoporosis Nos Status: Chronic (12) UTI (urinary tract infection) Status: Acute Objective Vital Signs Date Time Temp Pulse Resp B/P Pulse Ox O2 Delivery O2 Flow Rate FiO2 09/07/16 08:15 Room Air 09/07/16 07:39 36.8 93 18 164/76 93 Room Air 09/07/16 00:44 36.7 74 18 165/89 97 Room Air 09/07/16 00:00 Room Air 09/06/16 16:00 95 Room Air 09/06/16 15:17 36.6 74 18 95 Laboratory Results Item Value Date Time Blood Culture - Preliminary Resulted 09/04/16 2300 Blood NO GROWTH TO DATE. Blood Culture - Preliminary Resulted 09/04/16 2330 Blood NO GROWTH TO DATE. Last 24 Hours Test 09/06/16 16:05 09/06/16 20:32 09/07/16 07:56 09/07/16 11:28 Bedside Glucose 140 mg/dl 131 mg/dl 145 mg/dl 148 mg/dl Assessment and Plan (1) UTI (lower urinary tract infection) Status: Acute Assessment & Plan: agree with augmentin, 7 days total should be adequate, ok to d/c iv abx, ok for d/c from ID standpoint when medically stable. Continued [facility] stay due to: multiple IV medications needed Discharge planning: home
[2016-09-07 15:30] VITALS: BP 156/77; PULSE 66; TEMP 36.6; O2SAT 94
[2016-09-07] MEDS: DONEPEZIL HCL 5 MG TAB PO SCH (20:26)
[2016-09-07] MEDS: RANITIDINE HCL 150 MG TAB PO SCH (20:26)
[2016-09-07] MEDS: SIMVASTATIN 20 MG TAB PO SCH (20:26)
[2016-09-08 00:20] VITALS: BP 157/82; PULSE 64; TEMP 36.5; O2SAT 96
[2016-09-08 06:10] LABS: HEMATOCRIT 34.1 % (37-47); MEAN CELL VOLUME 87.9 fL (80-100); MEAN CORPUSCULAR HEMOGLOBIN 30.2 pg (25-34); MEAN CORPUSCULAR HGB CONC 34.3 g/dl (32-36); MEAN PLATELET VOLUME 9.5 fL (7.4-10.4); PLATELET COUNT 191 K/uL (130-400); RED BLOOD COUNT 3.88 M/uL (4.2-5.4); WHITE BLOOD COUNT 4.92 K/uL (4.8-10.8)
[2016-09-08] MEDS: HEPARIN SOD 5000 UNIT/0.5 ML CARP SQ SCH ×2 (06:18→13:33)
[2016-09-08] MEDS: INSULIN ASPART 100 UNITS/ML 3 ML PEN SC SCH ×2 (06:30→12:22)
[2016-09-08 07:46] VITALS: BP 175/68; PULSE 66; TEMP 36.9; O2SAT 95
[2016-09-08] MEDS: CARBIDOPA/LEVODOPA 25/100MG TAB PO SCH ×2 (09:03→12:20)
[2016-09-08] MEDS: PANTOprazole SOD 40 MG TAB PO SCH (09:03)
[2016-09-08] MEDS: AMOXICILLIN 500 MG CAP PO SCH ×2 (09:04→14:10)
[2016-09-08] MEDS: ASPIRIN 81 MG ECTAB PO SCH (09:04)
[2016-09-08] MEDS: SIMETHICONE 80 MG CHEW PO SCH ×2 (09:04→12:20)
[2016-09-08] MEDS: MEMANTINE 10 MG TAB PO SCH (09:04)
[2016-09-08] MEDS: LISINOPRIL 10 MG TAB PO SCH (09:05)
[2016-09-08] MEDS: LACTOBACILLUS ACIDOPHILUS 1 GM PACK PO SCH ×2 (09:05→12:20)
[2016-09-08] MEDS: CHOLECALCIFEROL 1000 INTER.UNIT TAB PO SCH (09:05)
[2016-09-08 10:52] VITALS: BP 175/68; PULSE 66; TEMP 36.9; O2SAT 95
[2016-09-08] MEDS ORDERED: AMX500 PO (11:06)
--- NOTE | 2016-09-08 11:15 | Discharge Instructions ---
Discharge Instructions Admission Reason for Admission: Cough, Fever Discharge Discharge Diagnosis / Problem: Possible sepsis upon admission, uti Discharge Goals Goal(s): Decrease discomfort, Improve function, Increase independence, Improve disease control, Improve nutritional status, Learn about illness, Diagnostic testing, Therapeutic intervention, Prevent Disease Progression, Specific goals Activity Recommendations Activity Level: OOB In Chair Therapies: Physical Therapy, Occupational Therapy Exercise/Sports Limitations: as tolerated Shower/Bathe: no limitations . Additional Information Patient informed of condition: Yes Advance Directives: Yes DNR: Yes Level of Care: Skilled Communicable Disease: No Prognosis: Other (very guarded) Oxygen at (LPM): no Jamison Catheter: No Instructions / Follow-Up Instructions / Follow-Up you possible have sepsis upon admission with Fevers, rigors, confusion upon admission. it is likely secondary to urinary tract infection you need to continue oral antibiotics for 5 days. I am giving you amoxicillin, but your record has listed of allergic reaction to penicillin which is " PT STATES THAT SHE HAD RECEIVED SHOTS IN THE PAST AND HER ARM GETS RED AND LUMP FORMS" therefore , I feel " amoxicillin in should be okay to give for now", RN in nursing and family need to watch any allergic reactions closely, in CT studies in this admission, there was partially visualized 15 mm rim calcified right renal lesion which is incidental findings per CT studies need to follow-up with PCP repeat the CT studies in 3 months - you need to follow up with your primary care physician in 1 week, - take medication as instructed, never overdose or any misuse, or take with alcohol, because misuse of medicine may cause organ damage or , call your primary care physician if have questions of medicaitons. - call your primary care physician OR go to local emergency room if has any fever/chill, chest pain, shortness of breathing, nausea/vomiting/abdominal pain , facial droop/slurry speech/local weakness, or if has any questions. - fall precaution - diet as instructed - you need to follow up with your subspecialist - you should understand that it is important to follow up the above instruction , and "not following the above instruction" may cause delayed or missed care of your medical conditions which may cause permanent organ damage and even . Current Hospital Diet Patient's current hospital diet: Diabetes Type 2 Diet, AHA Diet (Heart Healthy) Discharge Diet Recommended Diet: Diabetes Type 2 Diet Procedures Procedures Performed: no Pending Studies Studies pending at discharge: no Physician Orders On Transfer POLST Discussion: without POLST completion Laboratory Results Meds Administered (Past 24Hrs) Medications (Trade) Dose Ordered Sig/Wendy Route Start Time Stop Time Status Last Admin Dose Admin Amoxicillin (Amoxil Cap) 500 mg TID PO 09/06/16 15:30 09/13/16 09:01 09/08/16 09:04 500 MG Hemoglobin A1c Test 09/02/16 11:15 Range/Units Estimated Average Glucose 146 mg/dl Hemoglobin A1c 6.7 H 4.5-5.6 % Medical Emergencies . Who to Call and When: Medical Emergencies: If at any time you feel your situation is an emergency, please call 911 immediately. . Non-Emergent Contact Non-Emergency issues call your: Primary Care Provider . . "Provider Documentation" section prepared by Santos Tyler. Core Measure Problem Core Measures: None
--- NOTE | 2016-09-08 11:16 | Discharge Summary ---
Discharge Summary Admission Date: Sep 05, 2016 at 01:23 Discharge Date: Sep 08, 2016 Discharge Disposition: alf facility Principal Diagnosis: UTI, possible pneumonia, possible sepsis upon admission Problems/Secondary Diagnoses: (1) Dementia, Unspecified, Without Behavioral Disturbance Status: Chronic (2) Diabetes Status: Chronic (3) Esophageal Reflux Status: Chronic (4) Hyperlipidemia Nec/Nos Status: Chronic (5) Hypertension Nos Status: Chronic (6) Irritable Bowel Syndrome Status: Chronic (7) Osteoarthros Nos-Unspec Status: Chronic (8) Osteoporosis Nos Status: Chronic Immunizations: Have You Had Influenza Vaccine: No History of Tetanus Vaccine?: Unknown History of Pneumococcal: Yes Pneumococcal Date: May 29, 2008 History of Hepatitis B Vaccine: Unknown Procedures: No Consultations: No Medication Reconciliation New Medications: Amoxicillin (Amoxicillin) 500 Mg Cap 500 MG PO TID for 5 Days, #15 CAP Continued Medications: Aspirin (Aspirin Chewable) 81 Mg Chew 81 MG PO QAM Carbidopa/Levodopa (Sinemet 25MG/100MG) Tab 1 TAB PO TIDM, TAB Cholecalciferol (Vitamin D) 1,000 Inter.unit Tab 1000 INTER.UNIT PO QAM Donepezil HCl (Aricept) 5 Mg Tab 1 TAB PO HS for 90 Days, TAB 3 Refills Folic Acid (Folic Acid) 1 Mg Tab 1 MG PO DAILY Lisinopril (Zestril) 10 Mg Tab 10 MG PO DAILY, TAB Memantine (Namenda) 10 Mg Tab 10 MG PO BID Metformin HCl (Metformin HCl) 500 Mg Tab 1000 MG PO QAM Metformin Hcl (Glucophage) 500 Mg Tab 500 MG PO QPM, TAB Methotrexate (Methotrexate) 2.5 Mg Tab 15 MG PO WK TAKE 6 TABLETS ON FRIDAYS Multivitamin (Multivitamin) Tab 1 TAB PO QAM Omeprazole (Prilosec) 40 Mg Capcr 40 MG PO DAILY, CAP Polyethylene Glycol 3350 (Miralax) 1 Pow Pow 17 GM PO DAILY, #255 GM Probiotic Product (Probiotic) 1 Cap Cap 1 CAP PO DAILY Ranitidine HCl (Ranitidine HCl) 150 Mg Tab 150 MG PO HS Simethicone (Cvs Gas Relief) 80 Mg Chw 80 MG PO TIDM Simvastatin (Zocor) 20 Mg Tab 20 MG PO QPM Discontinued Medications: Nitrofurantoin Macrocrystals (Macrodantin) 100 Mg Cap 100 MG PO BID, CAP Discharge Exam Sitting up in chair, awake and alert and orientated, no name, place, and birthday Review of Systems: Constitutional: No chills, No fatigue, No fever, No problem reported, No sweats, No weakness, No weight loss ENT: No dental problems, No hearing loss, No nasal symptoms, No problem reported, No sore throat, No tinnitus, No trouble swallowing, No unusual epistaxis Respiratory: + cough, No dyspnea at rest, No dyspnea on exertion, No hemoptysis, No problem reported, No shortness of breath, No sputum, No wheezing Cardiovascular: No PND, No chest pain, No claudication, No edema, No orthopnea, No palpitations, No problem reported Abdomen: No GI bleeding, No constipation, No diarrhea, No nausea, No pain, No problem reported, No vomiting Musculoskeletal: No calf pain, No joint pain, No muscle pain, No problem reported, No swelling Genitourinary - Female: No dysmenorrhea, No dysuria, No hematuria, No menorrhagia, No metrorrhagia, No , No problem reported, No rash, No urinary frequency, No urinary incontinence, No urinary retention, No urinary urgency, No vaginal bleeding, No vaginal discharge, No vaginal itching, No vulvodynia Neurologic: + memory loss, No balance problems, No numbness/tingling, No paralysis, No problem reported, No vertigo, No weakness Psychiatric: No anhedonism, No anxiety, No depression symptoms, No insomnia , No problem reported, No substance abuse Endocrine: + fatigue, No excessive thirst, No excessive urination, No problem reported Hematologic / Lymphatic: No abnormal bleeding/bruising, No clotting problems , No night sweats, No problem reported, No swollen lymph nodes Integumentary: No bleeding, No color change, No itch, No new/changing skin lesions, No problem reported, No rash Physical Exam: General Appearance: WD/WN, + pertinent finding (look much less confused than yesterday) Eyes: normal inspection, PERRL ENT: normal ENT inspection, hearing grossly normal Neck: supple, no adenopathy Respiratory/Chest: chest non-tender, lungs clear, + decreased breath sounds Cardiovascular: regular rate, rhythm, no edema, no gallop, no JVD Abdomen / GI: normal bowel sounds, non tender, soft, no organomegaly Extremities: normal inspection, no calf tenderness, normal capillary refill Neurologic/Psychiatric: cost report clerk II-XII nml as tested, no motor/sensory deficits , alert, normal mood/affect, normal reflexes Skin: normal color, warm/dry Hospital Course This is an 81-year-old female with a history of dementia, hypertension, diabetes and recent admission for a urinary tract infection with metabolic encephalopathy admitted on 09/05/2015 b/c fever and altered mental status Significant improved and stable just discharged 09/04/2016, - Possible sepsis upon admission with Fevers, rigors, confusion upon admission. uti, or pna, blood culture negative, UA was negative Review of chest CT again possible not really significant pneumonia or infiltration cont abx ID noted -Partially visualized 15 mm rim calcified right renal lesion which is incidental findings per CT studies need to follow-up with PCP repeat the CT studies in 3 months - severe AMS upon admission likely from infection plus baseline dementia, totally resolved DD included sepsis/uti/pna, others includes meningitis and CVA Dementia is in baseline Possible bed ridding and impaired gait prior to admission, The patient receives Sinemet for this which we will continue t.i.d. Diabetes. Continue a sliding scale in the hospital. Rheumatoid arthritis. She has been provided with broad-spectrum antibiotics as she is technically immunocompromised due to MTX use. Hypomagnesemia. f/u Hypertension. She was hypertensive on arrival. Gi and DVt px In previous admission patient's daughter refused for the placement, therefore was discharged to personal care Patient is high risk of readmission Has discussed with daughter, Quinn will go to snf this time recycling operations manager told me snf possible ready today Instructions / Follow-Up you possible have sepsis upon admission with Fevers, rigors, confusion upon admission. it is likely secondary to urinary tract infection you need to continue oral antibiotics for 5 days. I am giving you amoxicillin, but your record has listed of allergic reaction to penicillin which is " PT STATES THAT SHE HAD RECEIVED SHOTS IN THE PAST AND HER ARM GETS RED AND LUMP FORMS" therefore , I feel " amoxicillin in should be okay to give for now", RN in nursing and family need to watch any allergic reactions closely, in CT studies in this admission, there was partially visualized 15 mm rim calcified right renal lesion which is incidental findings per CT studies need to follow-up with PCP repeat the CT studies in 3 months - you need to follow up with your primary care physician in 1 week, - take medication as instructed, never overdose or any misuse, or take with alcohol, because misuse of medicine may cause organ damage or , call your primary care physician if have questions of medicaitons. - call your primary care physician OR go to local emergency room if has any fever/chill, chest pain, shortness of breathing, nausea/vomiting/abdominal pain , facial droop/slurry speech/local weakness, or if has any questions. - fall precaution - diet as instructed - you need to follow up with your subspecialist - you should understand that it is important to follow up the above instruction , and "not following the above instruction" may cause delayed or missed care of your medical conditions which may cause permanent organ damage and even . Total Time Spent: Greater than 30 minutes This includes examination of the patient, discharge planning, medication reconciliation, and communication with other providers. Discharge Instructions Please refer to the electronic Patient Visit Report (Discharge Instructions) for additional information. Additional Copies To Nba Palencia M.D.
[2017-02-28] MEDS ORDERED: SIMV20TA5 PO (09:15)
[2017-02-28] MEDS ORDERED: ZNT150 PO (11:10)
[2017-02-28] MEDS ORDERED: SIME80CH40 PO (11:10)
[2017-02-28] MEDS ORDERED: POLY335019 PO (11:10)
[2017-02-28] MEDS ORDERED: CARB25TA12 PO (13:54)
[2017-02-28] MEDS ORDERED: MISCCAP80 PO (13:55)
[2017-02-28] MEDS ORDERED: LISI-461 PO (13:57)
[2017-02-28] MEDS ORDERED: MULT-506 PO (17:10)
== END 2016-09-08 14:12 | DRG 871 ==
LOC: ENRESERVTM → ENRESERVDT → EDBD 22:32 → C.EDC 22:36 → C.MED 09-05 01:23 → C.MS2W 09-06 16:13
PROVIDERS: ADMIT Internal Medicine; ATTEND Hospitalist
DX: A41.9 Sepsis, unspecified organism (principal); J18.9 Pneumonia, unspecified organism; G93.41 Metabolic encephalopathy; N39.0 Urinary tract infection, site not specified; B95.2 Enterococcus as the cause of diseases classified elsewhere; R09.02 Hypoxemia; E83.42 Hypomagnesemia; N28.9 Disorder of kidney and ureter, unspecified; I10 Essential (primary) hypertension; E11.9 Type 2 diabetes mellitus without complications; K21.9 Gastro-esophageal reflux disease without esophagitis; E78.00 Pure hypercholesterolemia, unspecified; E78.5 Hyperlipidemia, unspecified; K58.9 Irritable bowel syndrome, unspecified; M06.9 Rheumatoid arthritis, unspecified; M19.90 Unspecified osteoarthritis, unspecified site; M81.0 Age-related osteoporosis without current pathological fracture; R26.9 Unspecified abnormalities of gait and mobility; G30.9 Alzheimer's disease, unspecified; F02.80 Dementia in other diseases classified elsewhere, unspecified severity, without behavioral disturbance, psychotic disturbance, mood disturbance, and anxiety; Z88.0 Allergy status to penicillin; Z74.01 Bed confinement status; Z79.82 Long term (current) use of aspirin; Z79.899 Other long term (current) drug therapy

== ENCOUNTER → 2016-10-04 | Outpatient (CLI) | payer OTHER ==
[~2016-10-04] MED LIST changes: +ACET325T96 PO; +AMX500 PO; +ASPCH81X PO; +CARB25TA12 PO; +CHOL100027 PO; +CRAN500C2 PO; +FLV1 PO; +GLC/500 PO; +GLC500 PO; +LISI-461 PO; +MAGN400T6 PO; +MISCCAP80 PO; +MOML PO; +MULT-506 PO; -NITR100C41 PO; +NUTRITIONAL PO; +OMEP40CA41 PO; +POLY335019 PO; +PRNJ PO; +SIME80CH40 PO; +SIMV20TA5 PO; +TRAM-10 PO; +ZNT150 PO; +[UNRECOGNIZED DRUG - OTHER] PO; +[UNRECOGNIZED DRUG - OTHER] PO
[2016-10-05 10:59] LABS: URINE APPEARANCE CLEAR (CLEAR); URINE BILIRUBIN NEG (NEG); URINE COLOR YELLOW; URINE EPITHELIAL CELL AUTO >30 /lpf (0-5); URINE NITRITE NEG (NEG); URINE SPECIFIC GRAVITY 1.025 (1.000-1.030); UROBILINOGEN NEG (NEG)
[2016-10-05 11:00] LABS: MANUAL MICROSCOPIC REQUIRED? NO; REVIEW REQ? YES
== END ==
LOC: C.LABCC 02:00
PROVIDERS: ATTEND Internal Medicine
DX: R41.82 Altered mental status, unspecified (principal)

== ENCOUNTER → 2017-02-06 | Outpatient (CLI) | payer OTHER ==
[2017-02-07 02:05] LABS: URINE APPEARANCE CLOUDY (CLEAR); URINE BILIRUBIN NEG (NEG); URINE COLOR DK YELLOW; URINE NITRITE POS (NEG); URINE PH 5.5 (4.5-7.5); URINE SPECIFIC GRAVITY 1.029 (1.000-1.030); UROBILINOGEN NEG (NEG); ZZUR CULT IF INDIC CLEAN CATCH YES
[2017-02-07 02:43] LABS: MANUAL MICROSCOPIC REQUIRED? NO; REVIEW REQ? NO
[2017-02-07 12:20] LABS: BASO ABS # 0.06 K/uL (0-0.2); COMPLETE YES; EOS % 5.3 %; HEMATOCRIT 38.8 % (37-47); IG% 0.3 %; LYMPH % 42.4 %; LYMPH ABS # 2.54 K/uL (1.2-3.4); MEAN CELL VOLUME 89.8 fL (80-100); MEAN CORPUSCULAR HEMOGLOBIN 29.6 pg (25-34); MEAN PLATELET VOLUME 9.8 fL (7.4-10.4); MONO % 8.8 %; NEUT % 42.2 %; PLATELET COUNT 249 K/uL (130-400); RED BLOOD COUNT 4.32 M/uL (4.2-5.4); WHITE BLOOD COUNT 5.99 K/uL (4.8-10.8)
[2017-02-07 12:39] LABS: ALT/SGPT 11 U/L (12-78); AST/SGOT 12 U/L (15-37); BLOOD UREA NITROGEN 18 mg/dl (7-18); CALCIUM 9.5 mg/dl (8.5-10.1); CARBON DIOXIDE 30 mmol/L (21-32); CHLORIDE 105 mmol/L (98-107); CREATININE 0.71 mg/dl (0.60-1.20); GLUCOSE 114 mg/dl (70-99); MAGNESIUM 1.7 mg/dl (1.8-2.4); POTASSIUM 3.8 mmol/L (3.5-5.1); SODIUM 140 mmol/L (136-145); TRIGLYCERIDES 87 mg/dl (0-150); VERY LOW DENSITY LIPOPROT CALC 17 mg/dl
[2017-02-07 12:46] LABS: ALB/GLOB RATIO 0.7 (0.9-2); ALKALINE PHOSPHATASE 60 U/L (45-117); CHOLESTEROL 115 mg/dl (0-200); CHOLESTEROL/HDL RATIO 2.9; HDL CHOLESTEROL 39 mg/dl; LDL CHOLESTEROL CALCULATED 59 mg/dl
--- NOTE | 2017-02-13 11:24 | CODING QUERY MEDICAL NECESSITY ---
CQSUPPORTING DIAGNOSIS NEEDED A supporting diagnosis is required for the test/procedure performed on this patient in order for us to be reimbursed by the patient's insurance. Please provide a supporting diagnosis for the following test/procedure listed below next to the test name along with your signature. *If there is no additional diagnosis for this patient that would support the following test/procedure please document that below next to the test/procedure. Test(s)/Procedure(s) that require a supporting diagnosis: CHANTAL 02/07/17 VITAMIN D TEST Provider Signature: Date: Thank you Stephanie Sanchez Health Information Management Once completed, please kindly fax back to [phone] For questions please call [phone]
== END ==
LOC: C.LABCC 22:00
PROVIDERS: ATTEND Internal Medicine
DX: R53.83 Other fatigue (principal); R10.9 Unspecified abdominal pain; M81.0 Age-related osteoporosis without current pathological fracture

== ENCOUNTER → 2017-02-15 | Outpatient (CLI) | payer OTHER | END | disposition home or self-care (01) | LOC: C.LABCC 08:05 | PROVIDERS: ATTEND Internal Medicine | DX: E83.42 Hypomagnesemia (principal) ==

== ENCOUNTER 2017-02-28 22:04 | Emergency (ER) | payer OTHER ==
[~2017-02-28] VITALS: Ht 167.6 cm; Wt 90.2 kg
[~2017-02-28 22:04] MED LIST changes: -ACET325T96 PO; -ASPCH81X PO; -CHOL100027 PO; -CRAN500C2 PO; -FLV1 PO; -GLC/500 PO; -GLC500 PO; -MAGN400T6 PO; -MOML PO; -NUTRITIONAL PO; -OMEP40CA41 PO; -PRNJ PO; -TRAM-10 PO; -[UNRECOGNIZED DRUG - OTHER] PO; -[UNRECOGNIZED DRUG - OTHER] PO
[2017-02-28 22:15] VITALS: TEMP 36.7; Ht 167.6 cm; Wt 90.2 kg
[2017-02-28] MEDS ORDERED: OMEP40CA41 PO (22:29)
[2017-02-28] MEDS ORDERED: FLV1 PO (22:30)
[2017-02-28] MEDS ORDERED: GLC500 PO (22:30)
[2017-02-28] MEDS ORDERED: CHOL100027 PO (22:34)
[2017-02-28] MEDS ORDERED: TRAM-10 PO (22:53)
[2017-02-28] MEDS ORDERED: CRAN500C2 PO (22:53)
[2017-02-28] MEDS ORDERED: [UNRECOGNIZED DRUG - OTHER] PO (23:00)
[2017-02-28] MEDS ORDERED: PRNJ PO (23:00)
[2017-02-28] MEDS ORDERED: MOML PO (23:00)
[2017-02-28] MEDS ORDERED: MAGN400T6 PO (23:00)
[2017-02-28] MEDS ORDERED: [UNRECOGNIZED DRUG - OTHER] PO (23:00)
[2017-02-28] MEDS ORDERED: NUTRITIONAL PO (23:00)
[2017-02-28] MEDS ORDERED: ACET325T96 PO (23:00)
[2017-02-28] MEDS ORDERED: GLC/500 PO (23:16)
[2017-02-28] MEDS ORDERED: ASPCH81X PO (23:46)
[2017-03-01 00:07] VITALS: BP 140/82; PULSE 78; O2SAT 95
--- NOTE | 2017-03-01 08:03 | DIAGNOSTIC IMAGING REPORT ---
RIGHT WRIST MIN 3 VIEWS ROUTINE CLINICAL HISTORY: right wrist injury Right trauma. Pain. COMPARISON: None. DISCUSSION: Oblique nondisplaced fracture distal ulnar shaft. Degenerative changes of the osseous structures of the wrist. Lucency distal aspect second metacarpal most likely related to overlap artifact. Moderate soft tissue edema. IMPRESSION: Nondisplaced oblique fracture distal ulnar shaft. Electronically signed by: Jonathan Aceves M.D. 03/01/2017 8:02 AM Dictated Date/Time: 03/01/2017 8:00 AM
--- NOTE | 2017-03-01 08:12 | DIAGNOSTIC IMAGING REPORT ---
RIGHT FOREARM 2 VIEWS ROUTINE CLINICAL HISTORY: right forearm injury Right trauma COMPARISON: None. DISCUSSION: Nondisplaced oblique fracture mid to distal ulnar shaft. Degenerative change elsewhere. Mild soft tissue edema. IMPRESSION: Nondisplaced fracture mid to distal ulnar shaft. Electronically signed by: Jonathan Aceves M.D. 03/01/2017 8:10 AM Dictated Date/Time: 03/01/2017 8:03 AM
--- NOTE | 2017-03-01 17:12 | EMERGENCY ROOM VISIT NOTE ---
History Report prepared by Jordy: Michelle Hood Under the Supervision of: Dr. Jake Salvador M.D. First contact with patient: 22:14 Chief Complaint: ARM PAIN Stated Complaint: ARM PAIN History of Present Illness The patient is an 81 year old female who presents to the Emergency Room with complaints of worsening right arm pain that started 2 days ago. The history is limited secondary to dementia. The patient has advanced stage Alzheimer's disease. The patient came to the ED via ambulance from [facility]. The patient states that residential staff noticed a bruise on the medial aspect of the patient's right wrist 2 days ago and then they noticed more bruising on the lateral aspect of the patient's right wrist yesterday. The residential staff performed an x-ray of the patient's right wrist which revealed a right ulna fracture so they sent her into the ED for splinting. The patient's daughter has not noticed the patient complaining of anything else, including LOC, headache, neck pain, chest pain, breathing difficulties, abdominal pain. The patient's daughter is unsure of how the patient could have broken her wrist. She states that the residential staff were also unsure of what she could have done. The residential staff did not report any recent falls or head injuries. The patient 's daughter adds that the patient has been more rigid lately. For example, she states that when the patient had her hair done recently she would not straighten her neck after having her hair washed. History is limited secondary to dementia. Source of History: patient, family (daughter) History Limited By: dementia Onset: 2 days ago Position: arm (right) Quality: other (right arm pain) Timing: worsening Note: increased rigidity Review of Systems See HPI for pertinent positives and negatives. ROS limited secondary to dementia. Past Medical & Surgical Medical Problems: (1) Acute encephalopathy (2) Constipation (3) Cough (4) Dementia, Unspecified, Without Behavioral Disturbance (5) Diabetes (6) Diverticulosis Colon (W/O Ment Of Hemorrhage) (7) Esophageal Reflux (8) Hyperlipidemia Nec/Nos (9) Hypertension Nos (10) Irritable Bowel Syndrome (11) Metabolic encephalopathy (12) Osteoarthros Nos-Unspec (13) Osteoporosis Nos Surgical Problems: (1) History of cataract extraction (2) History of hysterectomy (3) History of shoulder surgery (4) Incisional Hernia Family History Cancer Social History Smoking Status: Never Smoker Alcohol Use: none Marital Status: Housing Status: lives with family Occupation Status: retired Current/Historical Medications Scheduled Aspirin (Aspirin Chewable), 81 MG PO QAM Carbidopa/Levodopa (Sinemet 25MG/100MG), 1 TAB PO TIDM Cholecalciferol (Vitamin D 1000 Unit), 1,000 INTER.UNIT PO DAILY Cranberry (Vaccinium Macrocarp (Cranberry), 500 MG PO DAILY Folic Acid (Folic Acid), 1 MG PO DAILY Lisinopril (Zestril), 10 MG PO DAILY Magnesium Hydroxide (Milk Of Magnesia), 30 ML PO PRN UD Magnesium Oxide (Mag-Ox), 400 MG PO BID Metformin HCl (Metformin HCl), 1,000 MG PO QAM Metformin Hcl (Glucophage), 500 MG PO QPM Methotrexate (Methotrexate), 15 MG PO WK Multivitamin (Multivitamin), 1 TAB PO QAM Omeprazole (Prilosec), 40 MG PO DAILY Polyethylene Glycol 3350 (Miralax), 17 GM PO DAILY Probiotic Product (Probiotic), 1 CAP PO DAILY Prune Juice (Prune Juice ), OZ PO PRN UD Ranitidine HCl (Ranitidine HCl), 150 MG PO HS Simethicone (Cvs Gas Relief), 80 MG PO TIDM Simvastatin (Zocor), 20 MG PO QPM [2.0 Calorie Med Pass], 60 ML PO QID [Frozen Treat], 120 ML PO TID [House Nutritional Dr], 180 ML PO TID Scheduled PRN Acetaminophen Tab (Tylenol), 650 MG PO Q6 PRN for Pain or Fever Miscellaneous Medications Tramadol (Ultram), 50 MG PO Tramadol (Ultram), 50 MG PO Allergies Coded Allergies: Penicillins (Verified Allergy, Intermediate, ARM GETS RED AND LUMP FORMS AT INJECTION SITE, 09/04/16) PT STATES THAT SHE HAD RECEIVED SHOTS IN THE PAST AND HER ARM GETS RED AND LUMP FORMS Latex (Verified Allergy, Mild, RASH, 09/04/16) Adhesives (Verified Allergy, Unknown, ., 09/04/16) Morphine (Verified Allergy, Unknown, 09/04/16) Levofloxacin (Verified Adverse Reaction, Intermediate, GI SYMPTOMS, 09/04/16 ) LOST 30 LBS. DUE TO GI SYMPTOMS Physical Exam Vital Signs Date Time Temp Pulse Resp B/P (MAP) Pulse Ox O2 Delivery O2 Flow Rate FiO2 03/01/17 00:07 78 18 140/82 95 Room Air 02/28/17 22:15 36.7 76 18 171/67 98 Room Air Physical Exam GENERAL: Awake, alert, well-appearing, in no distress HENT: Normocephalic, atraumatic. Oropharynx unremarkable. EYES: Normal conjunctiva. Sclera non-icteric. NECK: Supple. No nuchal rigidity. FROM. No JVD. RESPIRATORY: Clear to auscultation. CARDIAC: Regular rate, normal rhythm. Extremities warm and well perfused. Pulses equal. ABDOMEN: Soft, non-distended. No tenderness to palpation. No rebound or guarding. No masses. MUSCULOSKELETAL: Chest examination reveals no tenderness. The back is symmetrical on inspection without obvious abnormality. There is no CVA tenderness to palpation. No joint edema. UPPER EXTREMITIES: Bruising over snuff box in right wrist. Edema and bruising on the right distal forearm ulnar aspect. LOWER EXTREMITIES: Calves are equal size bilaterally and non-tender. No edema. No discoloration. NEURO: Demented sensorium. Not following commands(baseline per daughter) SKIN: No rash or jaundice noted. Medical Decision & Procedures ER Provider Diagnostic Interpretation: Radiology results as stated below per my interpretation RIGHT WRIST X-RAY My impression: Spiral, minimally displaced, ulnar shaft fracture. No dislocation. Procedure Splinting Indication: Right wrist fracture Verbal consent obtained. Risks and benefits were explained with the usual customary discussion. The injured extremity was identified. The patient was prepped and measured for the placement of an ulnar ortho-glass splint. Splint applied in the standard fashion over a layer of webril and secured using an elastic bandage. Set into a position of function. After this was sent I did readjust the Héctor bandage as it was causing some discomfort with the patient's finger. Normal neurovascular status after placement verified by me. The patient tolerated the procedure well and the care of the splint was discussed with the patient/family. No complications. ED Course 222: The patient was evaluated in room B9. A complete history and physical exam was performed. 0014: I reassessed the patient and put her in a splint. Please refer to the procedure note above for further details. Discussed results and discharge instructions with patient and her family. They verbalized understanding and agreement. The patient is ready for discharge. Medical Decision Medication Reconciliation: I attest that I have personally reviewed the patient' s current medication list Blood pressure screening: Patient was found to have an elevated blood pressure but she was not referred to her primary doctor for recheck secondary to her dementia and established follow-up in the residential. Triage Nursing notes reviewed. The patient's presentation and history were concerning for possible fracture. Etiologies such as soft tissue injury, fracture, dislocation, neurovascular compromise, compartment syndrome, as well as others were entertained. Patient was evaluated. She was resting comfortably. She has bruising on the right upper extremity. X-ray imaging did reveal a minimally displaced, non- angulated fracture of the ulnar shaft. The patient was placed in ulnar gutter splint. No other traumatic injuries were noted on examination. Daughter did not provide me additional history to suggest other injury. I discussed doing any additional workup and the daughter felt comfortable with the x-rays and splinting. She has seen Dr. Laughlin in the past. She will follow-up with the office. By the evaluation outlined above other emergent etiologies such as those listed in the differential, as well as others, were deemed relatively unlikely. The patient was educated about the findings as listed above. All questions were answered and the patient was pleased with the treatment. Return instructions were outlined and the patient was discharged in stable condition. The patient was referred to Dr. Laughlin of orthopedics for follow-up for a recheck of the current condition. Impression Primary Impression: Fracture of shaft of right ulna Scribe Attestation The scribe's documentation has been prepared under my direction and personally reviewed by me in its entirety. I confirm that the note above accurately reflects all work, treatment, procedures, and medical decision making performed by me. Departure Information Dispostion Other (discharged to residential) Referrals Andreas Yoon (PCP) Forms HOME CARE DOCUMENTATION FORM, IMPORTANT VISIT INFORMATION Patient Instructions My [facility] Additional Instructions ORTHOPEDIC INSTRUCTIONS: Continue current medications including the tramadol for pain. Ice compresses for 20 minutes at a time four times daily for 2-3 days. Use a sling as necessary. Rest and elevate your injury. Do not get the splint wet. If your splint feels excessively tight, you have worsening pain, develop numbness or tingling, or your digits appear blue, loosen the héctor wrap. Then reapply the héctor wrap gently without removing the splint. If your symptoms are not quickly relieved return to the ER for re- evaluation. Return to the ER immediately for any numbness, tingling, severe pain, extreme swelling in the extremity or as needed. Call [facility], [phone], tomorrow to arrange follow up for your injury. Problem Qualifiers Primary Impression: Fracture of shaft of right ulna Encounter type: initial encounter Fracture type: closed Fracture morphology : spiral Fracture alignment: nondisplaced Qualified Codes: S52.244A - Nondisplaced spiral fracture of shaft of ulna, right arm, initial encounter for closed fracture
== END 2017-03-01 02:25 | disposition home or self-care (01) ==
LOC: EDBD 22:04 → C.EDB 22:08
DX: S52.244A Nondisplaced spiral fracture of shaft of ulna, right arm, initial encounter for closed fracture (principal); X58.XXXA Exposure to other specified factors, initial encounter; G30.9 Alzheimer's disease, unspecified; F02.80 Dementia in other diseases classified elsewhere, unspecified severity, without behavioral disturbance, psychotic disturbance, mood disturbance, and anxiety; E11.9 Type 2 diabetes mellitus without complications; K57.30 Diverticulosis of large intestine without perforation or abscess without bleeding; K21.9 Gastro-esophageal reflux disease without esophagitis; E78.5 Hyperlipidemia, unspecified; I10 Essential (primary) hypertension; K58.9 Irritable bowel syndrome, unspecified; G93.41 Metabolic encephalopathy; M19.90 Unspecified osteoarthritis, unspecified site; M81.0 Age-related osteoporosis without current pathological fracture; Z90.710 Acquired absence of both cervix and uterus; Z79.84 Long term (current) use of oral hypoglycemic drugs; Z79.82 Long term (current) use of aspirin

== ENCOUNTER → 2017-03-02 | Outpatient (CLI) | payer OTHER ==
[~2017-03-02] MED LIST changes: +ACET325T96 PO; -AMX500 PO; +ASPCH81X PO; -CHOL100010 PO; +CHOL100027 PO; +CRAN500C2 PO; -DONE5TAB9 PO; +FLV1 PO; +GLC/500 PO; +GLC500 PO; +MAGN400T6 PO; +MOML PO; -NMN10 PO; +NUTRITIONAL PO; -OMEP40CA PO; +OMEP40CA41 PO; +PRNJ PO; +TRAM-10 PO; +[UNRECOGNIZED DRUG - OTHER] PO; +[UNRECOGNIZED DRUG - OTHER] PO
== END ==
LOC: C.LABCC 07:51
PROVIDERS: ATTEND Internal Medicine
DX: E83.42 Hypomagnesemia (principal)

== ENCOUNTER → 2017-03-05 | Outpatient (CLI) | payer OTHER ==
[2017-03-06 01:57] LABS: URINE APPEARANCE CLEAR (CLEAR); URINE BILIRUBIN NEG (NEG); URINE COLOR YELLOW; URINE NITRITE NEG (NEG); URINE SPECIFIC GRAVITY 1.043 (1.000-1.030); UROBILINOGEN NEG (NEG); ZZUR CULT IF INDIC CLEAN CATCH NO
[2017-03-06 01:59] LABS: MANUAL MICROSCOPIC REQUIRED? NO; REVIEW REQ? NO
== END ==
LOC: C.LABCC 22:30
PROVIDERS: ATTEND Internal Medicine
DX: R41.82 Altered mental status, unspecified (principal)

== ENCOUNTER → 2017-03-12 | Outpatient (CLI) | payer OTHER ==
[2017-03-12 08:47] LABS: BASO % 0.8 %; BASO ABS # 0.05 K/uL (0-0.2); COMPLETE YES; EOS % 5.9 %; IG% 0.3 %; LYMPH % 41.1 %; LYMPH ABS # 2.51 K/uL (1.2-3.4); MEAN CELL VOLUME 90.5 fL (80-100); MEAN CORPUSCULAR HGB CONC 32.1 g/dl (32-36); MEAN PLATELET VOLUME 9.9 fL (7.4-10.4); MONO % 3.4 %; NEUT % 48.5 %; PLATELET COUNT 228 K/uL (130-400)
[2017-03-12 08:55] LABS: BLOOD UREA NITROGEN 23 mg/dl (7-18); BUN/CREATININE RATIO 28.2 (10-20); CALCIUM 9.5 mg/dl (8.5-10.1); CARBON DIOXIDE 29 mmol/L (21-32); CHLORIDE 103 mmol/L (98-107); CREATININE 0.83 mg/dl (0.60-1.20); GLUCOSE 169 mg/dl (70-99); POTASSIUM 4.2 mmol/L (3.5-5.1); SODIUM 139 mmol/L (136-145)
== END ==
LOC: C.LABCC 08:35
PROVIDERS: ATTEND Internal Medicine
DX: R41.82 Altered mental status, unspecified (principal)

== ENCOUNTER → 2017-05-30 | Outpatient (CLI) | payer OTHER ==
[2017-05-30 17:58] LABS: URINE APPEARANCE TURBID (CLEAR); URINE BILIRUBIN NEG (NEG); URINE COLOR DK YELLOW; URINE EPITHELIAL CELL AUTO >30 /lpf (0-5); URINE NITRITE NEG (NEG); URINE SPECIFIC GRAVITY 1.024 (1.000-1.030); UROBILINOGEN NEG (NEG)
[2017-05-30 18:06] LABS: MANUAL MICROSCOPIC REQUIRED? NO; REVIEW REQ? YES
== END ==
LOC: C.LABCC 17:37
PROVIDERS: ATTEND Internal Medicine
DX: Z53.20 Procedure and treatment not carried out because of patient's decision for unspecified reasons (principal)

== ENCOUNTER → 2017-06-06 | Outpatient (CLI) | payer OTHER | LOC: C.LABCC 09:03 | PROVIDERS: ATTEND Internal Medicine | DX: E11.8 Type 2 diabetes mellitus with unspecified complications (principal) ==

== ENCOUNTER → 2017-10-08 | Outpatient (CLI) | payer OTHER ==
[~2017-10-08] MED LIST changes: +ACET-1693 PO; -ACET325T96 PO
[2017-10-08 09:32] LABS: BLOOD UREA NITROGEN 29 mg/dl (7-18); CALCIUM 9.3 mg/dl (8.5-10.1); CARBON DIOXIDE 28 mmol/L (21-32); CREATININE 1.09 mg/dl (0.60-1.20); GLUCOSE 77 mg/dl (70-99); POTASSIUM 4.1 mmol/L (3.5-5.1); SODIUM 142 mmol/L (136-145)
[2017-10-08 09:47] LABS: HEMOGLOBIN A1C 7.1 % (4.5-5.6)
--- NOTE | 2017-10-26 10:20 | CODING QUERY NO DIAGNOSIS ---
TREATMENT RENDERED WITHOUT A DIAGNOSIS : 34 To promote full compliance with coding requirements relating to patient care, physician participation is requested in all cases of communications systems engineer uncertainty. Please assist us with providing a diagnosis/symptom for the test(s) below: A diagnosis/symptom was not documented on your Order. A valid diagnosis/symptom is required to bill all insurances. Please remember that we are unable to code a diagnosis of rule out, probable, possible, questionable, or suspected. Tests that require a diagnosis: DOS: 10/08/17 * HEMOGLOBIN A1C DIAGNOSIS: * PARTIAL RENAL PROFILE DIAGNOSIS: Provider Signature: Date: Thank you Erin Baumann Health Information Management Once completed, please kindly fax back to [phone] For questions please call [phone]
== END ==
LOC: C.LABCC 08:43
PROVIDERS: ATTEND Internal Medicine
DX: E11.9 Type 2 diabetes mellitus without complications (principal)

== ENCOUNTER → 2018-04-16 | Outpatient (CLI) | payer OTHER ==
[2018-04-16 08:52] LABS: ALBUMIN 2.8 gm/dl (3.4-5.0); ALKALINE PHOSPHATASE 69 U/L (45-117); ALT/SGPT 19 U/L (12-78); AST/SGOT 17 U/L (15-37); BLOOD UREA NITROGEN 25 mg/dl (7-18); CALCIUM 9.3 mg/dl (8.5-10.1); CARBON DIOXIDE 28 mmol/L (21-32); CHOLESTEROL 146 mg/dl (0-200); CREATININE 0.97 mg/dl (0.60-1.20); GLUCOSE 77 mg/dl (70-99); LDL CHOLESTEROL CALCULATED 96 mg/dl; POTASSIUM 4.2 mmol/L (3.5-5.1); SODIUM 142 mmol/L (136-145); TOTAL PROTEIN 6.7 gm/dl (6.4-8.2)
== END ==
LOC: C.LABCC 08:20
PROVIDERS: ATTEND Internal Medicine
DX: E78.00 Pure hypercholesterolemia, unspecified (principal)